=== PATIENT | male | born 1940 | race Caucasian/White ===

== ENCOUNTER → 2021-11-11 08:39 | Outpatient (CLI) | payer MEDICARE, SELFPAY | PROVIDERS: Visit Provider Ophthalmology | DX: Z01.812 Encounter for preprocedural laboratory examination (principal); Z11.52 Encounter for screening for COVID-19 | CPT/HCPCS: C9803; U0003; U0005 ==

== ENCOUNTER 2021-11-14 07:22 | Day surgery (SDC) | payer MEDICARE, SELFPAY ==
[2021-11-09 13:58] VITALS: BMI 30.3
[2021-11-14] VITALS (7 sets, daily range): BP systolic 162–176; BP diastolic 77–96; PULSE 78–88; RESP 16–18; TEMP 36.7–37.1; O2SAT 97–98
[2022-07-19 10:56] LABS: POC Glucose,Bedside 156 (70-110)
== END 2021-11-14 08:52 | disposition home or self-care (01) ==
LOC: OR 07:24
PROVIDERS: PCP Family Medicine; Visit Provider Ophthalmology
DX: H25.813 Combined forms of age-related cataract, bilateral (principal); H02.831 Dermatochalasis of right upper eyelid; H02.834 Dermatochalasis of left upper eyelid; H53.149 Visual discomfort, unspecified; I48.91 Unspecified atrial fibrillation; E11.9 Type 2 diabetes mellitus without complications; Z79.899 Other long term (current) drug therapy; Z79.01 Long term (current) use of anticoagulants
CPT/HCPCS: 66984; 82962; V2632

== ENCOUNTER → 2021-11-25 07:46 | Outpatient (CLI) | payer MEDICARE, SELFPAY | PROVIDERS: Visit Provider Ophthalmology | DX: Z01.812 Encounter for preprocedural laboratory examination (principal); Z11.52 Encounter for screening for COVID-19 | CPT/HCPCS: C9803; U0003; U0005 ==

== ENCOUNTER 2021-11-28 06:47 | Day surgery (SDC) | payer MEDICARE, SELFPAY ==
[2021-11-22 12:47] VITALS: BMI 30.3
[2021-11-28] VITALS (7 sets, daily range): BP systolic 141–168; BP diastolic 75–93; PULSE 75–96; RESP 18; TEMP 36.7–36.8; O2SAT 96–100
[2022-07-19 10:57] LABS: POC Glucose,Bedside 202 (70-110)
== END 2021-11-28 08:55 | disposition home or self-care (01) ==
LOC: OR 06:48
PROVIDERS: PCP Family Medicine; Visit Provider Ophthalmology
DX: H25.813 Combined forms of age-related cataract, bilateral (principal); H02.831 Dermatochalasis of right upper eyelid; H02.834 Dermatochalasis of left upper eyelid; I48.91 Unspecified atrial fibrillation; E11.9 Type 2 diabetes mellitus without complications; Z79.82 Long term (current) use of aspirin; Z79.899 Other long term (current) drug therapy
CPT/HCPCS: 66984; 82962; V2632

== ENCOUNTER → 2022-06-19 06:17 | Outpatient (CLI) | payer MEDICARE, SELFPAY ==
[2022-06-19 21:25] LABS: Basophils # 0.1 K/mm3 (0-0.2); Basophils % 0.8 % (0.1-2.0); Eosinophils # 0.2 K/mm3 (0.0-0.4); Eosinophils % 1.8 % (0.1-12.0); Hematocrit 51.2 % (42.0-52.0); Hemoglobin 16.1 g/dL (14.1-18.0); Lymphocytes # 1.4 K/mm3 (0.7-4.5); Lymphocytes % 14.7 % (10-50); Mean Corpuscular HGB Conc 31.5 g/dL (31.8-35.4); Mean Corpuscular Hemoglobin 27.2 pg (27.0-31.2); Mean Corpuscular Volume 86.3 fl (80-94); Mean Platelet Volume 10.3 fl (7.4-10.4); Monocytes # 0.6 K/mm3 (0.1-1.0); Monocytes % 6.4 % (1.7-9.3); Neutrophils # 7.4 K/mm3 (1.8-7.8); Neutrophils % 76.3 % (37.0-80.0); Platelet Count 204 K/mm3 (142-424); Red Blood Count 5.92 M/mm3 (4.60-6.20); Red Cell Distribution Width 15.4 % (11.5-17.5); White Blood Count 9.7 K/mm3 (4.8-10.8)
[2022-06-19 21:42] LABS: Alanine Aminotransferase 21 U/L (12-78); Albumin Level 4.4 g/dl (3.5-5.0); Albumin/Globulin Ratio 1.4 (1.1-1.8); Alkaline Phosphatase 106 U/L (38-126); Anion Gap 18.9 mEq/L (5-15); Aspartate Amino Transferase 39 U/L (17-59); Bilirubin,Total 0.8 mg/dl (0.2-1.3); Blood Urea Nitrogen 19 mg/dl (9-20); Calcium 9.9 mg/dl (8.4-10.2); Carbon Dioxide 26 mmol/L (22.0-30.0); Chloride 102 mmol/L (98-107); Chol/HDL Ratio 4.2 (1-3.5); Cholesterol 114 mg/dl (140-200); Estimated Glomerular Filt Rate 81 ml/min (>60); GFR (African American) 98 ML/MIN (>60); Globulin 3.1 g/dL (1.3-3.2); Glucose 178 mg/dl (74-100); HDL Cholesterol 27 mg/dl (40-60); Potassium 3.9 mmoL/L (3.5-5.1); Sodium 143 mmol/L (136-145); Total Protein,Serum 7.5 g/dl (6.3-8.2); Triglycerides 150 mg/dl (30-150); VLDL Cholesterol 30 mg/dL (0-40)
[2022-06-19 22:05] LABS: Hemoglobin A1C 9.1 % (4.0-6.0)
[2022-06-19 22:12] LABS: Thyroid Stimulating Hormone 2.28 uIU/mL (0.465-4.68)
[2022-06-21 12:31] LABS: Direct LDL Cholesterol 55 mg/dL (100-129)
== END ==
PROVIDERS: PCP Family Medicine; Visit Provider Student in an Organized Health Care Education/Training Program
DX: E11.9 Type 2 diabetes mellitus without complications (principal); I10 Essential (primary) hypertension; Z79.84 Long term (current) use of oral hypoglycemic drugs
CPT/HCPCS: 80053; 80061; 83036; 84443; 85025

== ENCOUNTER → 2022-12-04 23:39 | Outpatient (CLI) | payer MEDICARE, SELFPAY ==
[2022-12-04 18:51] LABS: Hemoglobin A1C 7.8 % (4.0-6.0)
[2022-12-05 10:26] LABS: Creatinine,Urine Random 43 mg/dL (Not Estab.); Microalbumin/Creatinine Ratio 692.7
== END ==
PROVIDERS: PCP Family Medicine; Visit Provider Family Medicine
DX: E11.9 Type 2 diabetes mellitus without complications (principal); Z79.84 Long term (current) use of oral hypoglycemic drugs
CPT/HCPCS: 82043; 82570; 83036

== ENCOUNTER → 2023-04-03 16:54 | Outpatient (CLI) | payer MEDICARE, SELFPAY ==
[2023-04-03 16:47] LABS: Hemoglobin A1C 8.3 % (4.0-6.0)
== END ==
PROVIDERS: PCP Family Medicine; Visit Provider Family Medicine
DX: E11.9 Type 2 diabetes mellitus without complications (principal); Z79.84 Long term (current) use of oral hypoglycemic drugs
CPT/HCPCS: 83036

== ENCOUNTER → 2023-05-28 06:40 | Outpatient (CLI) | payer MEDICARE, SELFPAY ==
--- NOTE | 2023-05-28 06:43 | NM_ITS ---
APPROVED REPORT Exam: Nuclear Stress Test Indication: soa..palpitations..a-fib..high BP..Diabetes..High cholesterol Patient Location: Outpatient Stress Tech: Leah Fuentes [place] Tech:Sylvia LozanoHARPER willis RT (R)(N)(M) Ht: 6 ft 1 in Wt: 235 lbs BSA: 2.30 m2 BMI: 31.0 History: soa..palpitations..a-fib..high BP..Diabetes..High cholesterol Procedure: The patient was in atrial flutter,so he was sent to the E.R. and we did not get the stress portion of the stress test finished. Cardiac Stress and Resting SPECT Images: Cardiac Stress and Resting SPECT images were obtained using technetium 99m Myoview mCi stress and 10.62 mCi at rest. The patient was noted to be in atrial flutter, and therefore only resting images were obtained. He was transferred to the ER thereafter. Stress imaging could not be obtained. Resting imaging demonstrates medium-sized, mild perfusion defect in the inferior LV wall. Evaluation of fixed vs. reversible defect cannot be made due to absence of stess testing. Gated imaging is not obtained due to absence of stress imaging. Conclusion: The patient was noted to be in atrial flutter, and therefore only resting images were obtained. He was transferred to the ER thereafter. Stress imaging could not be obtained. Resting imaging demonstrates medium-sized, mild perfusion defect in the inferior and inferoseptal LV blount. Evaluation of fixed vs. reversible defect cannot be made due to absence of stess testing. Gated imaging is not obtained due to absence of stress imaging. Electronically signed by : Di Mckenna, 07/04/2023 22:52:58
== END ==
PROVIDERS: PCP Family Medicine; Visit Provider Nurse Practitioner
DX: I48.91 Unspecified atrial fibrillation (principal); R06.09 Other forms of dyspnea; R94.31 Abnormal electrocardiogram [ECG] [EKG]
CPT/HCPCS: 78452; 93306; A9502

== ENCOUNTER 2023-05-28 08:45 | Emergency (ER) | payer MEDICARE, SELFPAY ==
[2023-05-28] VITALS (7 sets, daily range): BP systolic 126–166; BP diastolic 72–99; PULSE 63–135; RESP 19–20; TEMP 36.5–36.8; O2SAT 95–97; BMI 31.8
--- NOTE | 2023-05-28 08:45 | ECG_ITS ---
APPROVED REPORT Exam: Resting ECG HR:143 bpm ECG Measurements Heart Rate 143 AXES QRSd 142 QRS -65 QT 319 T 86 QTc 402 Conclusion ATRIAL FIBRILLATION WITH RAPID VENTRICULAR RESPONSE WITH ABERRANT CONDUCTION OR VENTRICULAR PREMATURE COMPLEXES RIGHT BUNDLE BRANCH BLOCK [120+ ms QRS DURATION, UPRIGHT V1, 40+ ms S IN I/aVL/V4/V5/V6] LEFT ANTERIOR FASCICULAR BLOCK [QRS AXIS <= -45, QR IN I, RS IN II] MODERATE VOLTAGE CRITERIA FOR LVH, CONSIDER NORMAL VARIANT [MEETS CRITERIA IN ONE OF: R(aVL), S(V1), R(V5), R(V5/V6)+S(V1)] ST DEPRESSION, CONSIDER SUBENDOCARDIAL INJURY [0.1+ mV ST DEPRESSION] ABNORMAL ECG UNCONFIRMED REPORT Electronically signed by : Michael Farmer MD 05/28/2023 20:46:48
--- NOTE | 2023-05-28 09:02 | PC.NURSE ---
Dr. Edmond at BS
--- NOTE | 2023-05-28 09:13 | HMH.EDGENADL ---
Discharge Plan Disposition Patient Disposition: Admitted Prescriptions Prescriptions: No Action omeprazole 20 mg capsule,delayed release(DR/EC) 20 mg PO DAILY aspirin 81 MG tablet,delayed release (DR/EC) 81 mg PO DAILY atorvastatin 20 mg tablet See Rx Instructions .ROUTE .COMPLEX Rx Instructions: TAKE ONE TABLET BY MOUTH ONCE DAILY metoprolol succinate 50 mg tablet extended release 24 hr See Rx Instructions .ROUTE .COMPLEX Rx Instructions: TAKE ONE TABLET BY MOUTH EVERY DAY levothyroxine 25 mcg tablet See Rx Instructions .ROUTE .COMPLEX Rx Instructions: TAKE ONE TABLET BY MOUTH EVERY MORNING diltiazem HCl 300 mg capsule,extended release 24hr See Rx Instructions .ROUTE .COMPLEX Rx Instructions: TAKE ONE CAPSULE EVERY MORNING hydrochlorothiazide 25 mg tablet See Rx Instructions .ROUTE .COMPLEX Rx Instructions: TAKE ONE TABLET EVERY DAY FOR BLOOD PRESSURE metformin 500 mg tablet extended release 24 hr 1,000 mg PO BID levocetirizine 5 mg tablet See Rx Instructions .ROUTE .COMPLEX Rx Instructions: TAKE ONE TABLET BY MOUTH DAILY Xarelto 20 mg tablet See Rx Instructions .ROUTE .COMPLEX Rx Instructions: TAKE ONE TABLET BY MOUTH DAILY Jardiance 25 mg tablet See Rx Instructions .ROUTE .COMPLEX Rx Instructions: TAKE ONE TABLET BY MOUTH DAILY Referrals Follow up/Referrals: Julio C Varela MD [Primary Care Provider] - See instructions Activity Restrictions/Add. Instructions Additional Instructions/Restrictions: Please get your escalated dose of metoprolol filled and begin your new dose tomorrow. Please return to the emergency department with any chest pain or shortness of breath and follow-up with your cardiology appointment as previously instructed in a few days. Clinical Impressions Clinical Impression: Atrial fibrillation with RVR, RBBB, LAFB (left anterior fascicular block) Discharge ED Provider: Jonathan Edmond General Adult HPI General Chief complaint: Arrhythmia/Palpitations Stated complaint: abnormal heart rhythem Time Seen by Provider: 05/28/23 08:55 Mode of Arrival: Wheelchair Source of Information: Patient, Spouse and Medical Record Limitations: No Limitations Description of Symptoms (Recalled from ER Triage Doc. by RN): Pt presents to ER via wheelchair from radiology. He was in the middle of his Leelee-scan when pt's HR was elevated (120-140s). Tech states pt was in afib with runs of vtach 9 beat runs . The tech contacted Dr. Ramsey and he suggested to send pt to ER for evaluation. Pt denies any complaints. Denies chest pain, SOA, aniuxety, heart fluttering. He does report a hx of afib and takes Cardizem 300mg, Metoprolol Succ 50mg, and HCTZ 25mg this morning. Denies any n/v/d. He has been NPO since 12am for the scan this am. Pt reports he was having this scan d/t a murmur that Dr. Varela identified. History of Present Illness HPI narrative: Patient is an 82-year-old male presenting today with tacky dysrhythmia. He was sent in from an outpatient clinic where he was getting worked up for possible ischemic heart disease and was found to have a concern for A-fib versus V. tach. The tach subsequently discussed the case with Dr. Ramsey who sent the patient to the emergency department. No rhythm strips or old EKGs were sent with the patient. He takes diltiazem 300 mg extended release daily and metoprolol 50 mg extended release daily. He states he is having no symptoms no chest pain no shortness of breath and feels great. Related Data Home Medications Medication Instructions Recorded Confirmed aspirin 81 mg tablet,delayed 81 mg PO DAILY heart health 11/14/21 05/28/23 release omeprazole 20 mg capsule,delayed 20 mg PO DAILY gerd 05/01/23 05/28/23 release atorvastatin 20 mg tablet See Rx Instructions .Route 05/28/23 05/28/23 .COMPLEX High Cholesterol diltiazem HCl 300 mg See Rx
[2023-05-28 09:26] LABS: Basophils % 0.1 % (0.1-2.0); Eosinophils # 0.1 K/mm3 (0.0-0.4); Eosinophils % 0.7 % (0.1-12.0); Hematocrit 40.5 % (42.0-52.0); Hemoglobin 12.2 g/dL (14.1-18.0); Lymphocytes # 1.6 K/mm3 (0.7-4.5); Lymphocytes % 11.6 % (10-50); Mean Corpuscular HGB Conc 30.1 g/dL (31.8-35.4); Mean Corpuscular Hemoglobin 18.7 pg (27.0-31.2); Mean Corpuscular Volume 62.3 fl (80-94); Mean Platelet Volume 8.7 fl (7.4-10.4); Neutrophils # 11.1 K/mm3 (1.8-7.8); Neutrophils % 80.6 % (37.0-80.0); Platelet Count 255 K/mm3 (142-424); Red Cell Distribution Width 20.5 % (11.5-17.5); White Blood Count 13.8 K/mm3 (4.8-10.8)
[2023-05-28 09:32] LABS: Alanine Aminotransferase 38 U/L (12-78); Albumin Level 4.8 g/dl (3.5-5.0); Albumin/Globulin Ratio 1.7 (1.1-1.8); Alkaline Phosphatase 76 U/L (38-126); Aspartate Amino Transferase 42 U/L (17-59); Bilirubin,Total 1.1 mg/dl (0.2-1.3); Blood Urea Nitrogen 25 mg/dl (9-20); Calcium 9.7 mg/dl (8.4-10.2); Carbon Dioxide 26 mmol/L (22.0-30.0); Chloride 101 mmol/L (98-107); Creatinine Clearance Estimated 89 mL/min (50-200); Estimated Glomerular Filt Rate 81 ml/min (>60); GFR (African American) 98 ML/MIN (>60); Globulin 2.9 g/dL (1.3-3.2); Glucose 166 mg/dl (74-100); Magnesium 1.9 mg/dl (1.6-2.3); Sodium 138 mmol/L (136-145); Total Protein,Serum 7.7 g/dl (6.3-8.2)
[2023-05-28 09:44] LABS: Troponin I 0.03 ng/ml (0.00-0.034)
[2023-05-28 10:02] LABS: Thyroid Stimulating Hormone 2.04 uIU/mL (0.465-4.68)
--- NOTE | 2023-05-28 10:17 | PC.NURSE ---
Dr. Brown at BS
--- NOTE | 2023-05-28 10:20 | PC.NURSE ---
talked to someone in cardiology about interrogating pt pacemaker.
--- NOTE | 2023-05-28 10:40 | EXP.MED.CON ---
History of Present Illness *Admission Date: 05/28/23 *Reason for visit:: Fast heart rate *History of present illness: Mr. Hackett is a pleasant 82-year-old male with history of atrial fibrillation, on chronic anticoagulation who is recently established with cardiology at [facility]. He was being seen today for nuclear stress test when he was noted to have tachyarrhythmia. Cardiology recently made adjustments to his rate controlling regimen 1 month ago with the addition of 50 mg metoprolol succinate. He is presenting today for outpatient ischemic work-up. On evaluation prior to completing stress test, patient was noted to have a fast heart rate. The tachyarrhythmia was subsequently discussed with Dr. Ramsey (Per ER documentation) who recommended the patient go to the emergency room for further evaluation. On evaluation in the ER, patient found to be in A-fib with RVR with heart rate in the 130s. He was started on diltiazem with improvement between 100-110s. During this entire time, patient denied any chest pain, sensation of heart racing, shortness of breath, dizziness, confusion. Patient stated he was asymptomatic and feeling great . ER consulted medicine for possible admission. I came to the ER to see the patient and further evaluate. Given his lack of symptoms, stable hemodynamics, and close follow-up with family member who works in cardiology clinic, recommended adjustment of medications and discharge home. Patient received additional dose of metoprolol succinate 50 mg x 1 in the ER prior to discharge home. Family at bedside, discussed plan with both patient and family, they both expressed comfort with this plan. [facility] Disclaimer: The information contained in this section may have been updated after the patient was seen, as this information can be updated by other users. Medical History A-fib Diabetes mellitus Hypertension Hypothyroidism Surgical History No significant past surgical history Family History Diabetes Mother Stroke Father Social History Smoking Status: Former smoker pack-years: 10 second hand exposure: No alcohol intake: never current occupational status: retired Travel in the last 8 weeks: None household members: family housing: house caffeine: Yes Review of Systems Review of Systems Review of systems (narrative): 14 point review of systems performed, pertinent positives and negatives as per HPI Exam Data for Last 24 hours Vital signs and Labs for Last 24 Hours: Temp Pulse Resp BP Pulse Ox O2 Del Method 97.7 F 105 H 20 136/76 95 Room Air 05/28/23 08:53 05/28/23 10:01 05/28/23 08:53 05/28/23 10:01 05/28/23 10:01 05/28/23 08:53 Laboratory Results - last 24 hr 05/28/23 08:50: WBC 13.8 H, RBC 6.50 H, Hgb 12.2 L, Hct 40.5 L, MCV 62.3 L, MCH 18.7 L, MCHC 30.1 L, RDW 20.5 H, Plt Count 255, MPV 8.7, Neut % (Auto) 80.6 H, Lymph % (Auto) 11.6, [place] % (Auto) 7.0, Eos % (Auto) 0.7, Baso % (Auto) 0.1, Neut # (Auto) 11.1 H, Lymph # (Auto) 1.6, [place] # (Auto) 1.0, Eos # (Auto) 0.1, Baso # (Auto) 0.0, Sodium 138, Potassium 4.0, Chloride 101, Carbon Dioxide 26, Anion Gap 15.0, BUN 25 H, Creatinine 0.90, Estimated Creat Clear 89, Estimated GFR 81, Est GFR ( Amer) 98, Glucose 166 H, Calcium 9.7, Magnesium 1.9, Total Bilirubin 1.1, AST 42, ALT 38, Alkaline Phosphatase 76, Troponin I 0.03, Total Protein 7.7, Albumin 4.8, Globulin 2.9, Albumin/Globulin Ratio 1.7, TSH 2.04 I & O for Last 24 hours: Intake & Output 05/25/23 05/26/23 05/27/23 05/28/23 23:59 23:59 23:59 23:59 Weight 106.594 kg Constitutional Constitutional: no acute distress and obese *Routine HEENT Exam Head: Present normocephalic Eye: Present EOMI and PERRL ENT: Present mucous m
== END 2023-05-28 11:05 | disposition admitted as inpatient to this hospital (09) ==
PROVIDERS: Emergency Provider Student in an Organized Health Care Education/Training Program; PCP Family Medicine
DX: I48.91 Unspecified atrial fibrillation (principal); I45.10 Unspecified right bundle-branch block; I44.4 Left anterior fascicular block; E11.9 Type 2 diabetes mellitus without complications; I10 Essential (primary) hypertension; E03.9 Hypothyroidism, unspecified; Z87.891 Personal history of nicotine dependence; R94.31 Abnormal electrocardiogram [ECG] [EKG]
CPT/HCPCS: 78451; 78452; 80053; 83735; 84443; 84484; 85025; 93005; 96374; 99291; A9502

== ENCOUNTER 2023-06-06 09:10 | Outpatient (CLI) | payer MEDICARE, SELFPAY ==
[2023-06-06] VITALS (8 sets, daily range): BP systolic 115–164; BP diastolic 62–93; PULSE 56–96; RESP 16–18; TEMP 36.2–36.6; O2SAT 91–96
--- NOTE | 2023-06-06 09:42 | PC.NURSE ---
FSBS: 138
[2023-06-06 09:46] LABS: POC Glucose,Bedside 138 (70-110)
== END 2023-06-06 12:20 | disposition home or self-care (01) ==
LOC: RAD 09:10
PROVIDERS: PCP Family Medicine; Visit Provider Internal Medicine
DX: E11.9 Type 2 diabetes mellitus without complications (principal); E78.5 Hyperlipidemia, unspecified; I10 Essential (primary) hypertension; I48.91 Unspecified atrial fibrillation; R06.09 Other forms of dyspnea; R94.31 Abnormal electrocardiogram [ECG] [EKG]; Z79.01 Long term (current) use of anticoagulants; Z87.891 Personal history of nicotine dependence; Z79.84 Long term (current) use of oral hypoglycemic drugs; R00.2 Palpitations
CPT/HCPCS: 75574; 82962; Q9967

== ENCOUNTER → 2023-06-26 13:54 | Outpatient (CLI) | payer MEDICARE, SELFPAY ==
--- NOTE | 2023-06-26 13:58 | CA_ITS ---
APPROVED REPORT EXAM: Comprehensive 2D, Doppler, and color-flow Echocardiogram Judge Clerk: Annelise Romero RT(R) Ht: 6 ft 0 in Wt: 222lbs BSA: 2.23 BP: 171/85 mmHg Indications: AFIB, ex smoker, HTN, DM, hyperlipidemia, abn EKG 2D Dimensions LVOT 2.52 cm (M/F) 1.5-2.5 LA Volume 112.40 mL LA Volume Index 50.40 mL/m2 (M/F) 16-34 M-Mode Dimensions RVDd 3.48 cm (0.9-2.6) LA Diam 6.68 cm (1.9-4.0) LVDd 5.10 cm (3.5-5.7) Ao Diam 3.30 cm (2.0-3.7) LVDs 4.07 cm (3.5-5.7) IVSd 1.03 cm (0.6-1.1) PWd 0.93 cm (0.6-1.1) EF (Teich) 41.10% FS 20.20% EDV (Teich) 123.80 mL ESV (Teich) 72.90 mL Tricuspid Valve TR P. Velocity 542.00 cm/s Left Ventricle The left ventricle is normal size. The left ventricular systolic function is normal. The left ventricular ejection fraction is within the normal range. There is increased LV wall thickness. There is normal LV segmental wall motion. The diastolic function cannot be evaluated due to atrial fibrillation. LVEF is 55%. Right Ventricle Right ventricle is moderately dilated. Right ventricle is mildly hypokinetic. Atria Left atrium is severely dilated. Right atrium is moderately dilated. There is no Doppler evidence of interatrial shunt. There is lipomatous hypertrophy of the interatrial septum. Aortic Valve The aortic valve is moderately thickened. There is no aortic valvular stenosis. Trace aortic regurgitation. Mitral Valve The mitral valve is mildly thickened. No evidence of mitral valve stenosis. Mild mitral regurgitation. Tricuspid Valve The tricuspid valve leaflets are thin and pliable. Mild tricuspid regurgitation. RVSP is 40-45 mmHg. Pulmonic Valve The pulmonary valve is normal in structure. Mild pulmonic regurgitation. Great Vessels The aortic root is normal in size. The ascending aorta is normal in size. IVC is normal in size and collapses >50% with inspiration. Pericardium Trivial pericardial effusion. Other Information Study Quality: Fair Conclusion Normal LV systolic function. Moderately dilated RV with mild reduction in RV function. Severe LA dilation, moderate RA dilation. Lipomatous hypertrophy of the interatrial septum. No significant valvular disease. Trivial pericardial effusion. Electronically signed by : Di Mckenna, 07/02/2023 00:10:44
== END ==
PROVIDERS: PCP Family Medicine; Visit Provider Nurse Practitioner
DX: I10 Essential (primary) hypertension (principal); I48.91 Unspecified atrial fibrillation; R06.09 Other forms of dyspnea
CPT/HCPCS: 93306

== ENCOUNTER 2023-06-27 07:01 | Day surgery (SDC) | payer MEDICARE, SELFPAY ==
[2023-06-27] VITALS (15 sets, daily range): BP systolic 105–176; BP diastolic 51–110; PULSE 56–95; RESP 17–18; TEMP 37; O2SAT 90–98; BMI 30.4
--- NOTE | 2023-06-27 07:17 | IR_ITS ---
APPROVED REPORT Patient Location: Outpatient PROCEDURES Left heart catheterization Left ventriculogram Selective coronary angiogram Drug-eluting stent deployment to the proximal mid dominant right coronary INDICATION Coronary artery disease, Angina pectoris Informed consent was obtained prior to the procedure. COMPLICATIONS NONE Estimated Blood Loss: LESS THAN 10 ML TECHNIQUE One percent lidocaine was used to anesthetize the right groin. The right femoral artery was accessed via the Seldinger technique. A 4-Gibraltarian sheath was placed in the right femoral artery. The JL-4 and JR-4 catheter was also used to perform left heart catheterization left ventriculogram and selective coronary angiogram. At the end of the diagnostic angiogram therapeutic heparin was administered and the 4 Gibraltarian sheath exchanged for a 6 Gibraltarian sheath. A 6 Gibraltarian JR4 catheter was placed in the right coronary artery followed by Choice PT extra-support wire being placed on the right coronary. A 4 mm x 38 mm Gary frontier stent was deployed at 20 yanick reducing the stenosis. A 5 mm x 20 mm balloon was then advanced and deployed at 20 yanick throughout the stent reducing the stenosis to less than 10%. BARBARA-3 flow was present before and after the procedure. At the end the procedure the apparatus was removed the groin was reprepped closure change sheath was removed and hemostasis was achieved using Perclose device patient was transferred to the postop holding in stable condition ANGIOGRAPHIC RESULTS The left main artery Has a smooth ostial 10 to 20% stenosis The left anterior descending artery Has proximal concentric 30% stenosis followed by mid vessel focal 70% stenosis immediately after a large second diagonal artery. The LAD is a large caliber vessel and wraps the apex The circumflex artery Small nondominant with mild mid vessel 10 to 20% stenosis The right coronary artery Massively large dominant vessel with proximal 40% followed by concentric 80% stenosis. The CAPELLAN ventriculogram reveals Normal 65% The left ventricular end-diastolic pressure 15 mmHg IMPRESSION Severe proximal dominant right coronary disease as described above with successful stenting reducing the severe stenosis to 0% with 1 drug-eluting stent Persistent moderate to severe stenosis in the mid LAD Normal ejection fraction Normal left ventricular end-diastolic pressure PLAN 1. It is reasonable to consider medical management for the mid LAD stenosis. Percutaneous revascularization is also possible. I would base the decision to revascularize patient based on symptoms 2. Plavix 75 mg daily plus aspirin 81 mg daily along with Xarelto for 1 month. Discontinue aspirin in 1 month and continue Plavix and Xarelto 3. LDL less than 55 to be achieved with high intensity statin 4. Consider Holter monitor based on significant ectopy during cardiac catheterization 5. Cardiac rehabilitation 6. Avoidance of tobacco products Electronically signed by : Mohinder Ramsey MD 06/27/2023 13:10:26
[2023-06-27 08:01] LABS: Basophils % 0.4 % (0.1-2.0); Eosinophils # 0.2 K/mm3 (0.0-0.4); Eosinophils % 1.6 % (0.1-12.0); Hemoglobin 13.4 g/dL (14.1-18.0); Lymphocytes # 1.5 K/mm3 (0.7-4.5); Lymphocytes % 15.3 % (10-50); Mean Corpuscular HGB Conc 31.1 g/dL (31.8-35.4); Mean Corpuscular Hemoglobin 20.1 pg (27.0-31.2); Mean Corpuscular Volume 64.8 fl (80-94); Mean Platelet Volume 8.8 fl (7.4-10.4); Monocytes # 0.6 K/mm3 (0.1-1.0); Neutrophils # 7.6 K/mm3 (1.8-7.8); Neutrophils % 76.7 % (37.0-80.0); Platelet Count 237 K/mm3 (142-424); Red Blood Count 6.64 M/mm3 (4.60-6.20); Red Cell Distribution Width 22.2 % (11.5-17.5); White Blood Count 9.8 K/mm3 (4.8-10.8)
[2023-06-27 08:13] LABS: Anion Gap 16.6 mEq/L (5-15); Blood Urea Nitrogen 16 mg/dl (9-20); Calcium 9.5 mg/dl (8.4-10.2); Carbon Dioxide 28 mmol/L (22.0-30.0); Chloride 100 mmol/L (98-107); Creatinine Clearance Estimated 85 mL/min (50-200); Estimated Glomerular Filt Rate 93 ml/min (>60); GFR (African American) 113 ML/MIN (>60); Glucose 161 mg/dl (74-100); Potassium 3.6 mmoL/L (3.5-5.1); Sodium 141 mmol/L (136-145)
[2023-06-27 10:33] LABS: CATHL Activated Clotting Time 269 SEC (74-125)
--- NOTE | 2023-06-27 12:54 | HMH.PHACL ---
PHA Forensic Science Technician Discharge Med Area Operations Director: Miki Salinasnathenrolf has received discharge medication counseling on the following medications: -ASPIRIN (ON PREVIOUSLY, NO QUESTIONS) -ATORVASTATIN (ON PREVIOUSLY, NO QUESTIONS) -PLAVIX (ANTIPLATELET, DAILY, BLEED/BRUISE RISK, BLEED LOCATION AND APPEARANCE, BUMP HEAD = GO TO ER TO RULE OUT HEAD BLEED, SOB POSSIBLE BUT RARE) -METOPROLOL (ON PREVIOUSLY, NO QUESTIONS) -NO FESTUS/ARB PER MD. -HOLD METFORMIN UNTIL SATURDAY. PATIENT VERBALIZED NO QUESTIONS AT THIS TIME.
== END 2023-06-27 12:58 | disposition home or self-care (01) ==
PROVIDERS: PCP Family Medicine; Visit Provider Internal Medicine
DX: E11.9 Type 2 diabetes mellitus without complications (principal); E78.5 Hyperlipidemia, unspecified; I10 Essential (primary) hypertension; I48.91 Unspecified atrial fibrillation; R93.1 Abnormal findings on diagnostic imaging of heart and coronary circulation; R93.89 Abnormal findings on diagnostic imaging of other specified body structures; R94.31 Abnormal electrocardiogram [ECG] [EKG]; Z79.01 Long term (current) use of anticoagulants; Z87.891 Personal history of nicotine dependence; I25.118 Atherosclerotic heart disease of native coronary artery with other forms of angina pectoris
CPT/HCPCS: 80048; 85025; 85347; 92928; 93458; 99152; 99153; C1725; C1760; C1769; C1876; C9600; J1644; Q9967

== ENCOUNTER → 2023-07-08 13:53 | Outpatient (CLI) | payer MEDICARE, SELFPAY ==
--- NOTE | 2023-07-08 14:08 | XR_ITS ---
FINAL REPORT CLINICAL HISTORY: wheezing FINDINGS: 2 views of the chest were obtained . The heart is mildly enlarged. The mediastinum is within normal limits. The lungs are clear. There is no pneumothorax. Osseous structures are unremarkable. IMPRESSION: No acute cardiopulmonary process. Reviewed, Interpreted and Dictated by Trenton Quintero MD Transcribed by Karen Hussein Authenticated and [facility]
== END ==
PROVIDERS: PCP Family Medicine; Visit Provider Nurse Practitioner
DX: R06.2 Wheezing (principal)
CPT/HCPCS: 71046

== ENCOUNTER 2023-07-12 12:05 | Inpatient (IN) | payer MEDICARE, SELFPAY ==
[2023-07-12] VITALS (10 sets, daily range): BP systolic 96–138; BP diastolic 45–79; PULSE 63–90; RESP 15–23; TEMP 36.6–36.8; O2SAT 94–97; BMI 29.0
--- NOTE | 2023-07-12 12:12 | ECG_ITS ---
APPROVED REPORT Exam: Resting ECG HR:88 bpm ECG Measurements Heart Rate 88 AXES QRSd 139 QRS -57 QT 427 T 99 QTc 472 Conclusion ATRIAL FIBRILLATION WITH ABERRANT CONDUCTION OR VENTRICULAR PREMATURE COMPLEXES RIGHT BUNDLE BRANCH BLOCK [120+ ms QRS DURATION, UPRIGHT V1, 40+ ms S IN I/aVL/V4/V5/V6] LEFT ANTERIOR FASCICULAR BLOCK [QRS AXIS <= -45, QR IN I, RS IN II] MODERATE VOLTAGE CRITERIA FOR LVH, CONSIDER NORMAL VARIANT [MEETS CRITERIA IN ONE OF: R(aVL), S(V1), R(V5), R(V5/V6)+S(V1)] MODERATE T-WAVE ABNORMALITY, CONSIDER LATERAL ISCHEMIA [-0.1+ mV T-WAVE IN I/aVL/V5/V6] ABNORMAL ECG UNCONFIRMED REPORT Electronically signed by : Michael Farmer MD 07/14/2023 07:38:22
--- NOTE | 2023-07-12 12:27 | XR_ITS ---
FINAL REPORT CLINICAL HISTORY: vomiting blood COMPARISON: 07/08/2023 FINDINGS: SINGLE VIEW CHEST The heart is normal in size. The mediastinum is unremarkable. The lungs are clear. There is no pneumothorax. IMPRESSION: No acute process. Reviewed, Interpreted and Dictated by Trenton Quintero MD Transcribed by Mary Cedeño Authenticated and [facility]
[2023-07-12 12:51] LABS: Basophils # 0.1 K/mm3 (0-0.2); Basophils % 0.4 % (0.1-2.0); Eosinophils # 0.2 K/mm3 (0.0-0.4); Eosinophils % 1.4 % (0.1-12.0); Hematocrit 34.5 % (42.0-52.0); Hemoglobin 10.3 g/dL (14.1-18.0); Lymphocytes # 1.9 K/mm3 (0.7-4.5); Lymphocytes % 15.6 % (10-50); Mean Corpuscular HGB Conc 29.9 g/dL (31.8-35.4); Mean Corpuscular Hemoglobin 20.1 pg (27.0-31.2); Mean Corpuscular Volume 67.3 fl (80-94); Mean Platelet Volume 9.1 fl (7.4-10.4); Monocytes # 0.6 K/mm3 (0.1-1.0); Monocytes % 4.6 % (1.7-9.3); Neutrophils # 9.4 K/mm3 (1.8-7.8); Platelet Count 344 K/mm3 (142-424); Red Blood Count 5.13 M/mm3 (4.60-6.20); Red Cell Distribution Width 22.6 % (11.5-17.5); White Blood Count 12.1 K/mm3 (4.8-10.8)
[2023-07-12 12:59] LABS: Anion Gap 18.6 mEq/L (5-15); Blood Urea Nitrogen 32 mg/dl (9-20); Calcium 9.1 mg/dl (8.4-10.2); Carbon Dioxide 26 mmol/L (22.0-30.0); Chloride 103 mmol/L (98-107); Creatinine Clearance Estimated 83 mL/min (50-200); Estimated Glomerular Filt Rate 81 ml/min (>60); GFR (African American) 98 ML/MIN (>60); Glucose 157 mg/dl (74-100); Potassium 3.6 mmoL/L (3.5-5.1); Sodium 144 mmol/L (136-145)
--- NOTE | 2023-07-12 13:03 | HMH.EDGENADL ---
Discharge Plan Disposition Patient Disposition: Admitted Prescriptions Prescriptions: No Action omeprazole 20 mg capsule,delayed release(DR/EC) 20 mg PO DAILY metoprolol succinate 100 mg tablet extended release 24 hr 100 mg PO DAILY 30 Days Qty: 30 2RF levothyroxine 25 mcg tablet See Rx Instructions .ROUTE .COMPLEX Qty: 90 0RF Dose Instruction: TAKE ONE TABLET BY MOUTH EVERY MORNING Rx Instructions: TAKE ONE TABLET BY MOUTH EVERY MORNING Jardiance 25 mg tablet See Rx Instructions .ROUTE .COMPLEX Qty: 30 2RF Dose Instruction: TAKE ONE TABLET BY MOUTH DAILY Rx Instructions: TAKE ONE TABLET BY MOUTH DAILY levocetirizine 5 mg tablet See Rx Instructions .ROUTE .COMPLEX Qty: 30 2RF Dose Instruction: TAKE ONE TABLET BY MOUTH DAILY Rx Instructions: TAKE ONE TABLET BY MOUTH DAILY aspirin 81 MG tablet,delayed release (DR/EC) 81 mg PO DAILY digoxin 125 mcg (0.125 mg) tablet 125 mcg PO DAILY hydrochlorothiazide 25 mg tablet See Rx Instructions .ROUTE .COMPLEX Rx Instructions: TAKE ONE TABLET EVERY DAY FOR BLOOD PRESSURE metformin 500 mg tablet extended release 24 hr 1,000 mg PO BID atorvastatin 20 mg tablet See Rx Instructions .ROUTE .COMPLEX Rx Instructions: TAKE ONE TABLET BY MOUTH ONCE DAILY diltiazem HCl 300 mg capsule,extended release 24hr See Rx Instructions .ROUTE .COMPLEX Rx Instructions: TAKE ONE CAPSULE EVERY MORNING Xarelto 20 mg tablet See Rx Instructions .ROUTE .COMPLEX Rx Instructions: TAKE ONE TABLET BY MOUTH DAILY clopidogrel [Plavix] 75 mg Tablet 75 mg PO DAILY Qty: 30 6RF Referrals Follow up/Referrals: Provider,Referral, [Referring] - See instructions Clinical Impressions Clinical Impression: Hematemesis, Anticoagulated Instructions Patient Instructions: DI for Gastrointestinal Bleeding Discharge ED Provider: Jonathan Edmond General Adult HPI General Chief complaint: GI Bleed Stated complaint: vomiting blood Time Seen by Provider: 07/12/23 12:51 Mode of Arrival: Ambulatory Source of Information: Patient Limitations: No Limitations Description of Symptoms (Recalled from ER Triage Doc. by RN): c/o spitting up bright red blood with his burp. PT states that last night he had some bright red blood come out of his nostril. History of Present Illness HPI narrative: Patient is an 82-year-old male history of atrial fibrillation chronically on Xarelto also recently had a left heart cath with a stent placed and he was started on aspirin and Plavix on top of his Xarelto. Presents to the emergency department today with some hematemesis. States that this began last night when he was coughing and states he had a little bit of blood that was going on the posterior aspect of his sinuses but no significant bleed at that time but today he was belching and a significant amount of blood was vomited up after that. He states that this is not primarily been associated with a cough but he believes from a gastrointestinal system standpoint. He denies any melena or hematochezia. He has been fatigued over the last several days more than normal. Patient denies any significant pain specifically epigastric abdominal pain. He does have a history of bleeding ulcers in the past and states he has felt some indigestion and gastroesophageal reflux type symptoms recently. Related Data Home Medications Medication Instructions Recorded Confirmed aspirin 81 mg tablet,delayed 81 mg PO DAILY heart health 11/14/21 07/08/23 release omeprazole 20 mg capsule,delayed 20 mg PO DAILY gerd 05/01/23 07/08/23 release hydrochlorothiazide 25 mg tablet See Rx Instructions .Route 05/28/23 07/08/23 .COMPLEX High Blood Pressure metformin 500 mg tablet,extended 1,000 mg PO BID Diabetes 05/28/23 07/08/23 release 24 hr digoxin 125 mcg (0.125 mg) tablet 125 mcg PO DAILY heart rate 06/06/2307/08
[2023-07-12 13:11] LABS: Troponin I 0.07 ng/ml (0.00-0.034)
--- NOTE | 2023-07-12 14:05 | PC.NURSE ---
Balbir COLLAZO rounding on pt. Pt questioned how long it would be before he went upstairs. Pt and family educated on expected wait times. No other needs voiced.
--- NOTE | 2023-07-12 14:15 | PC.NURSE ---
would like to s/w on-call General Surgery, Dr. Killian is on-call. His office will have him call shortly.
--- NOTE | 2023-07-12 14:17 | PC.NURSE ---
Omar Edmond s/w Dr. Killian
--- NOTE | 2023-07-12 15:05 | PC.NURSE ---
report called to ananya on second floor
--- NOTE | 2023-07-12 15:15 | HMH.PHAINT1 ---
Pharmacy Intervention Comments: MEDICATION RECONCILIATION COMPLETE USING LIST FROM MOST RECENT CARDIOLOGY OFFICE VISIT AND EXTERNAL PHARMACY FILL HISTORY.
--- NOTE | 2023-07-12 15:16 | PC.NURSE ---
arrived by w/c to floor from ED
[2023-07-12 15:25] LABS: INR 1.51 (0.9-1.1); Prothrombin Time 15.9 seconds (10.1-12.5)
[2023-07-12 15:53] LABS: Troponin I 0.07 ng/ml (0.00-0.034)
--- NOTE | 2023-07-12 17:33 | PC.NURSE ---
Pt is A/O x4, Pt came4 to unit with a possible GI bleed, Pt remains stable and pain free. MD ordered full liquid diet, and NPO after midnight in preparation for possible scope 07/13/23,Pt had a bloody stool at 1730 this shift (provider was notified), Pt offers no complaints and denies needs at this time
[2023-07-12 18:42] LABS: Hematocrit 27.3 % (42.0-52.0)
[2023-07-12 18:43] LABS: Hemoglobin 8.4 g/dL (14.1-18.0)
[2023-07-12 18:59] LABS: Troponin I 0.06 ng/ml (0.00-0.034)
--- NOTE | 2023-07-12 20:19 | EXP.HP ---
History of Present Illness *Admission Date: 07/12/23 *Reason for visit:: hemoptysis *History of present illness: Mr. Saini is an 82-year-old male with history of A-fib on chronic Xarelto, CAD with recent stent 2 weeks ago, hypertension, HLD, T2DM. He presented to the ER with complaint of coughing up blood last night and having an episode of burping up blood this morning after taking his morning pills. Complains of feeling more weak and fatigued. His episode of belching this morning produced a significant amount of blood which concerned him causing him to come to the ER. He has a remote history 10 to 15 years ago of ulcers but has been tolerant of Xarelto for many years with no issues. Was recently initiated on triple therapy 2 weeks ago. He denies any melena or bright red blood per rectum. Denies any specific or significant epigastric pain. States his blood pressure has been soft ever since his heart cath. Takes omeprazole for GERD. Afebrile with no syncope. On evaluation in the ER, patient found to have a hemoglobin 10.5. Hemoglobin 2 weeks ago above 13. Has not had a bowel movement today. ER consulted medicine for admission for serial labs and management of GI bleed. After arrival to the floor, patient is pleasant and interactive. Alert and oriented x3. Family at bedside. Multiple episodes of hematemesis since this morning. [facility] Disclaimer: The information contained in this section may have been updated after the patient was seen, as this information can be updated by other users. 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 congregational No significant past surgical history Family History Diabetes Mother Stroke Father Social History Smoking Status: Former smoker pack-years: 10 second hand exposure: No alcohol intake: never current occupational status: retired Travel in the last 8 weeks: None household members: family housing: house caffeine: Yes Review of Systems Review of Systems Review of systems (narrative): 14 point review of systems performed, pertinent positives and negatives as per HPI Meds Home Medications and Allergies Home Medications Medication Instructions Recorded Confirmed Type aspirin 81 mg tablet,delayed 81 mg PO DAILY Coronary Artery 11/14/21 07/12/23 History release Disease omeprazole 20 mg capsule,delayed 20 mg PO DAILY Acid Reflux 05/01/23 07/12/23 History release hydrochlorothiazide 25 mg tablet 25 mg PO DAILY High Blood Pressure 05/28/23 07/12/23 History metformin 500 mg tablet,extended 1,000 mg PO BIDWMEAL Diabetes 05/28/23 07/12/23 History release 24 hr digoxin 125 mcg (0.125 mg) tablet 125 mcg PO DAILY heart rate 06/06/23 07/12/23 History atorvastatin 20 mg tablet 20 mg PO DAILY Cholesterol 06/27/23 07/12/23 History diltiazem HCl 300 mg 300 mg PO DAILY HEART RATE 06/27/23 07/12/23 History capsule,extended release 24 hr rivaroxaban 20 mg tablet (Xarelto) 20 mg PO QPMWITHMEAL A FIB 06/27/23 07/12/23 History clopidogrel 75 mg tablet (Plavix) 75 mg PO DAILY Blood Thinner 07/12/23 07/12/23 History empagliflozin 25 mg tablet 25 mg PO DAILY Diabetes 07/12/23 07/12/23 History (Jardiance) levocetirizine 5 mg tablet 5 mg PO DAILY Allergy Symptoms 07/12/23 07/12/23 History levothyroxine 25 mcg tablet 25 mcg PO DAILYDM thyroid 07/12/23 07/12/23 History metoprolol succinate 100 mg 100 mg PO DAILY High Blood Pressure 07/12/23 07/12/23 History tablet,extended release 24 hr New Prescriptions to Start Prescriptions: Allergies Allergy/AdvReac Type Severity Reaction Status Date / Time No Known Allergie
[2023-07-13] VITALS (19 sets, daily range): BP systolic 100–164; BP diastolic 50–89; PULSE 80–102; RESP 16–20; TEMP 36.4–37.2; O2SAT 92–99; BMI 29.5
--- NOTE | 2023-07-13 04:54 | PC.NURSE ---
HAS HAD 1 MOD TARRY STOOL THIS SHIFT. TELE - AFIB RBBB. NO C/O CP OR SOA. AMBULATORY TO [facility]. AT BEDSIDE. NPO DIRECTED.
--- NOTE | 2023-07-13 06:11 | PC.NURSE ---
patient passed mod amt tarry stool with some blood noted.
[2023-07-13 06:21] LABS: Basophils % 0.3 % (0.1-2.0); Eosinophils # 0.1 K/mm3 (0.0-0.4); Eosinophils % 1.4 % (0.1-12.0); Hematocrit 26.8 % (42.0-52.0); Hemoglobin 7.9 g/dL (14.1-18.0); Lymphocytes # 1.6 K/mm3 (0.7-4.5); Lymphocytes % 16.9 % (10-50); Mean Corpuscular HGB Conc 29.6 g/dL (31.8-35.4); Mean Corpuscular Hemoglobin 19.9 pg (27.0-31.2); Mean Corpuscular Volume 67.3 fl (80-94); Mean Platelet Volume 10.4 fl (7.4-10.4); Monocytes # 0.5 K/mm3 (0.1-1.0); Monocytes % 5.1 % (1.7-9.3); Neutrophils # 7.4 K/mm3 (1.8-7.8); Neutrophils % 76.2 % (37.0-80.0); Platelet Count 255 K/mm3 (142-424); Red Blood Count 3.98 M/mm3 (4.60-6.20); Red Cell Distribution Width 22.9 % (11.5-17.5); White Blood Count 9.7 K/mm3 (4.8-10.8)
--- NOTE | 2023-07-13 06:26 | EXP.SURG.CON ---
History of Present Illness *Admission Date: 07/12/23 *Reason for visit:: Gastrointestinal hemorrhage *History of present illness: This is an 82-year-old gentleman seen in consultation from the primary service for evaluation regarding likely upper gastrointestinal hemorrhage. Please see HPI forwarded from admission H&P below. Forwarded from admission H&P: Mr. Saini is an 82-year-old male with history of A-fib on chronic Xarelto, CAD with recent stent 2 weeks ago, hypertension, HLD, T2DM. He presented to the ER with complaint of coughing up blood last night and having an episode of burping up blood this morning after taking his morning pills. Complains of feeling more weak and fatigued. His episode of belching this morning produced a significant amount of blood which concerned him causing him to come to the ER. He has a remote history 10 to 15 years ago of ulcers but has been tolerant of Xarelto for many years with no issues. Was recently initiated on triple therapy 2 weeks ago. He denies any melena or bright red blood per rectum. Denies any specific or significant epigastric pain. States his blood pressure has been soft ever since his heart cath. Takes omeprazole for GERD. Afebrile with no syncope. On evaluation in the ER, patient found to have a hemoglobin 10.5. Hemoglobin 2 weeks ago above 13. Has not had a bowel movement today. ER consulted medicine for admission for serial labs and management of GI bleed. After arrival to the floor, patient is pleasant and interactive. Alert and oriented x3. Family at bedside. Multiple episodes of hematemesis since this morning. [facility] Disclaimer: The information contained in this section may have been updated after the patient was seen, as this information can be updated by other users. 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 jain No significant past surgical history Family History Diabetes Mother Stroke Father Social History Smoking Status: Former smoker pack-years: 10 second hand exposure: No alcohol intake: never current occupational status: retired Travel in the last 8 weeks: None household members: family housing: house caffeine: Yes Meds Home Medications and Allergies Home Medications Medication Instructions Recorded Confirmed Type aspirin 81 mg tablet,delayed 81 mg PO DAILY Coronary Artery 11/14/21 07/12/23 History release Disease omeprazole 20 mg capsule,delayed 20 mg PO DAILY Acid Reflux 05/01/23 07/12/23 History release hydrochlorothiazide 25 mg tablet 25 mg PO DAILY High Blood Pressure 05/28/23 07/12/23 History metformin 500 mg tablet,extended 1,000 mg PO BIDWMEAL Diabetes 05/28/23 07/12/23 History release 24 hr digoxin 125 mcg (0.125 mg) tablet 125 mcg PO DAILY heart rate 06/06/23 07/12/23 History atorvastatin 20 mg tablet 20 mg PO DAILY Cholesterol 06/27/23 07/12/23 History diltiazem HCl 300 mg 300 mg PO DAILY HEART RATE 06/27/23 07/12/23 History capsule,extended release 24 hr rivaroxaban 20 mg tablet (Xarelto) 20 mg PO QPMWITHMEAL A FIB 06/27/23 07/12/23 History clopidogrel 75 mg tablet (Plavix) 75 mg PO DAILY Blood Thinner 07/12/23 07/12/23 History empagliflozin 25 mg tablet 25 mg PO DAILY Diabetes 07/12/23 07/12/23 History (Jardiance) levocetirizine 5 mg tablet 5 mg PO DAILY Allergy Symptoms 07/12/23 07/12/23 History levothyroxine 25 mcg tablet 25 mcg PO DAILYDM thyroid 07/12/23 07/12/23 History metoprolol succinate 100 mg 100 mg PO DAILY High Blood Pressure 07/12/23 07/12/23 History tablet,extended release 24 hr New Prescriptions to Start Prescriptions:
[2023-07-13 06:30] LABS: Alanine Aminotransferase 26 U/L (12-78); Albumin Level 3.5 g/dl (3.5-5.0); Albumin/Globulin Ratio 1.7 (1.1-1.8); Alkaline Phosphatase 52 U/L (38-126); Anion Gap 17.8 mEq/L (5-15); Aspartate Amino Transferase 27 U/L (17-59); Bilirubin,Total 0.8 mg/dl (0.2-1.3); Blood Urea Nitrogen 52 mg/dl (9-20); Carbon Dioxide 25 mmol/L (22.0-30.0); Chloride 104 mmol/L (98-107); Creatinine Clearance Estimated 84 mL/min (50-200); Estimated Glomerular Filt Rate 72 ml/min (>60); GFR (African American) 87 ML/MIN (>60); Globulin 2.1 g/dL (1.3-3.2); Glucose 193 mg/dl (74-100); Magnesium 1.8 mg/dl (1.6-2.3); Potassium 3.8 mmoL/L (3.5-5.1); Sodium 143 mmol/L (136-145); Total Protein,Serum 5.6 g/dl (6.3-8.2)
--- NOTE | 2023-07-13 06:59 | PC.NURSE ---
4018 DR BATES/SURGEON HERE TO SEE PATIENT AND DISCUSSED EGD. CONSENT OBTAINED. PRE-OP CHECK LIST COMPLETED.
--- NOTE | 2023-07-13 07:01 | PC.NURSE ---
Surgery team paged. Nolan returned call at [phone]. Shonda returned call at [phone]. Leticia returned call at [phone].
--- NOTE | 2023-07-13 07:30 | ECG_ITS ---
APPROVED REPORT Exam: Resting ECG HR:94 bpm ECG Measurements Heart Rate 94 AXES QRSd 144 QRS -53 QT 430 T 85 QTc 482 Conclusion ATRIAL FIBRILLATION WITH RVR RIGHT BUNDLE BRANCH BLOCK [120+ ms QRS DURATION, UPRIGHT V1, 40+ ms S IN I/aVL/V4/V5/V6] LEFT ANTERIOR FASCICULAR BLOCK [QRS AXIS <= -45, QR IN I, RS IN II] ABNORMAL ECG UNCONFIRMED REPORT Electronically signed by : Michael Farmer MD 07/14/2023 07:33:03
--- NOTE | 2023-07-13 08:21 | HMH.SCOPE ---
Procedure: Date: 07/13/23 Patient Date of :: 1940 Procedure Performed:: Esophagogastroduodenoscopy with biopsy Indications:: Gastrointestinal hemorrhage Performing Provider:: Vasquez Killian MD Referring Provider:: . Sedation:: Monitored anesthesia care Procedure:: After informed consent was obtained the patient was taken to the endoscopy suite. Sedation ensued after the patient was transferred to the left lateral decubitus position. Pulse, blood pressure, and oxygen saturation were monitored throughout the procedure. The endoscope was advanced beyond the duodenal bulb. Retroflexion within the gastric lumen was accomplished. The gastroscope was carefully removed and the patient was transferred to recovery in stable condition. Please see findings and specimens below for detail. Findings:: Esophageal mucosal projection at 35 cm (no sign of active/recent hemorrhage) Sliding hiatal hernia No obvious Oni lesion Mild patchy gastritis No obvious gastric or duodenal ulcerations No sign of active or recent hemorrhage in esophagus, stomach, or duodenum Specimens:: Antral biopsy Recommendations:: Evaluation for additional source of gastrointestinal hemorrhage (ideally as outpatient) Consider evaluation for possible pulmonary source Short-term repeat esophagogastroduodenoscopy to be performed by the gastroenterology service for evaluation of mucosal projection at 35 cm Complications:: No immediate Estimated blood obtained (mL): 1 Colonoscopy Component Colonoscopy Component Was a colonoscopy performed during today's procedure?: No
--- NOTE | 2023-07-13 08:24 | EXP.ANES.CKL ---
[facility] Disclaimer: The information contained in this section may have been updated after the patient was seen, as this information can be updated by other users. 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 jehovah's witness No significant past surgical history Family History Diabetes Mother Stroke Father Social History Smoking Status: Former smoker pack-years: 10 second hand exposure: No alcohol intake: never substance use type: denies use current occupational status: retired Travel in the last 8 weeks: None household members: family housing: house caffeine: Yes [facility] Anesthesia Checklist Patient Identification Patient Identification: Verbal (Name & ) Structural Data Admitted From: Inpatient Planned Operative Procedure/s: egd Consent for Planned Operative Procedure(s) Verified: Yes Additional verifications Anesthesia Reactions: No Hx Blood Transfusions: No Airway Assessment Mallampati Score:: Class II C-Spine Mobility Assessed: Yes TMJ Mobility Assessed: Yes Dentition: Poor Dentition Neurological Assessment Level of Consciousness: Awake, Alert and Appropriate Anesthesia Plan Anesthesia Risk discussed: Yes Anesthesia Plan: Verified ASA Class: III Anesthesia Type: MAC
--- NOTE | 2023-07-13 08:40 | SUR.OPER ---
0754: Patient voided prior to procedure in Scope room. 50mL urine collected at this time.
--- NOTE | 2023-07-13 09:18 | SUR.OPER ---
0754: Scope number 14 used
[2023-07-13 10:47] LABS: POC Glucose,Bedside 237 (70-110)
--- NOTE | 2023-07-13 11:21 | EXP.ACUTE.PN ---
Subjective *Date: 07/13/23 *Time: 15:08 Interval history: Patient more weak today. Has had several black stools this morning. Remains afebrile and hemodynamically stable. Holding blood pressure medication this morning. Family at bedside, concern for continued bloody bowel movements. Hemoglobin stabilizing however. Offered reassurance. Stable on room air Medical Exam Vital signs and Labs for Last 24 Hours: Vital Signs Temp Pulse Pulse Resp BP BP Pulse Ox 07/13/23 09:19 93 H 07/13/23 08:50 97.5 F L 91 H 20 139/62 95 07/13/23 08:40 97.5 F L 92 H 18 113/68 95 07/13/23 08:30 97.5 F L 93 H 16 128/69 97 07/13/23 08:20 97.5 F L 95 H 16 100/59 L 95 07/13/23 07:32 98.9 F 100 H 16 148/63 H 97 07/13/23 06:30 07/13/23 04:00 98.6 F 91 H 18 133/72 94 L 07/13/23 05:00 07/13/23 03:51 97 H 07/13/23 03:00 07/13/23 01:00 07/12/23 23:46 98.2 F 89 19 138/79 97 07/12/23 23:00 07/12/23 21:00 07/12/23 20:00 97 07/12/23 20:00 98.0 F 90 18 135/76 97 07/12/23 18:52 07/12/23 16:54 07/12/23 15:29 98 F 63 20 125/48 L 97 07/12/23 15:12 98.0 F 72 16 101/45 L 07/12/23 14:31 72 23 101/45 L 95 07/12/23 14:01 84 21 99/54 L 97 07/12/23 13:31 72 19 96/63 L 95 07/12/23 13:00 79 15 122/69 97 07/12/23 12:30 74 15 109/60 L 94 L 07/12/23 12:06 98.2 F 78 18 122/68 97 O2 Del Method O2 Flow Rate 07/13/23 09:19 07/13/23 08:50 Room Air 07/13/23 08:40 Room Air 07/13/23 08:30 Nasal Cannula 5 07/13/23 08:20 Nasal Cannula 5 07/13/23 07:32 Room Air 07/13/23 06:30 Room Air 07/13/23 04:00 Room Air 07/13/23 05:00 Room Air 07/13/23 03:51 07/13/23 03:00 Room Air 07/13/23 01:00 Room Air 07/12/23 23:46 Room Air 07/12/23 23:00 Room Air 07/12/23 21:00 Room Air 07/12/23 20:00 Room Air 07/12/23 20:00 Room Air 07/12/23 18:52 Room Air 07/12/23 16:54 Room Air 07/12/23 15:29 Room Air 07/12/23 15:12 07/12/23 14:31 Room Air 07/12/23 14:01 Room Air 07/12/23 13:31 Room Air 07/12/23 13:00 07/12/23 12:30 07/12/23 12:06 Room Air Intake and Output 07/12/23 07/13/23 07/13/23 23:59 07:59 15:59 Intake Total 360 / 720 360 / 360 Output Total 200 / 200 0 1 Balance 160 / 520 359 / 359 0 / 359 Intake: Intake, Oral Amount 360 / 720 360 / 360 Output: Output, Urine Amount 200 / 200 0 / 1 Other: Number of Unmeasured Voids 1 1 1 Number of Bowel Movements 1 1 Weight 100.868 kg Patient Weight 07/13/23 23:59 Weight 100.868 kg Laboratory Results - last 24 hr 07/12/23 12:15: WBC 12.1 H, RBC 5.13, Hgb 10.3 L, Hct 34.5 L, MCV 67.3 L, MCH 20.1 L, MCHC 29.9 L, RDW 22.6 H, Plt Count 344, MPV 9.1, Neut % (Auto) 78.0, Lymph % (Auto) 15.6, [place] % (Auto) 4.6, Eos % (Auto) 1.4, Baso % (Auto) 0.4, Neut # (Auto) 9.4 H, Lymph # (Auto) 1.9, [place] # (Auto) 0.6, Eos # (Auto) 0.2, Baso # (Auto) 0.1, PT 15.9 H, INR 1.51 H, Sodium 144, Potassium 3.6, Chloride 103, Carbon Dioxide 26, Anion Gap 18.6 H, BUN 32 H, Creatinine 0.90, Estimated Creat Clear 83, Estimated GFR 81, Est GFR ( Amer) 98, Glucose 157 H, Calcium 9.1, Troponin I 0.07 H, Blood Type O Positive, Antibody Screen Negative, Crossmatch (AHG) See Detail 07/12/23 15:22: Troponin I 0.07 H 07/12/23 16:50: Blood Type Cancelled, Blood Type Confirm O Positive, Antibody Screen Cancelled 07/12/23 18:13: Hgb 8.4 L D, Hct 27.3 L, Troponin I 0.06 H 07/13/23 06:11: WBC 9.7, RBC 3.98 L, Hgb 7.9 L, Hct 26.8 L, MCV 67.3 L, MCH 19.9 L, MCHC 29.6 L, RDW 22.9 H, Plt Count 255 D, MPV 10.4, Neut % (Auto) 76.2, Lymph % (Auto) 16.9, [place] % (Auto) 5.1, Eos % (Auto) 1.4, Baso % (Auto) 0.3, Neut # (Auto) 7.4, Lymph # (Auto) 1.6, [place] # (Auto) 0.5, Eos # (Auto) 0.1, Baso # (Auto) 0.0, Sodium 143, Potassium 3.8, Chloride 104, Carbon Dioxide 25, Anion Gap 17.8 H, BU
--- NOTE | 2023-07-13 13:00 | PC.NURSE ---
COURTESY NOTE: pt provided with fresh ice water. pt had no further requests.
[2023-07-13 13:43] LABS: Hematocrit 25.9 % (42.0-52.0); Hemoglobin 7.7 g/dL (14.1-18.0)
[2023-07-13 16:19] LABS: POC Glucose,Bedside 220 (70-110)
--- NOTE | 2023-07-13 17:23 | PC.NURSE ---
Pt is A/O x4, Pt had a EGD this morning and tolerated the procedure well. Pt tolerated a full liquid diet most of the shift following the procedure, Pt has since advanced to a bland diet for dinner and seems to be tolerating that well. Pt complains of bloody stools and hemorrhoids, MD notified, medications given for comfort. glucose levels have been elevated this shift and given insulin for coverage. Pt denies pain and offers no complaints at this time.
[2023-07-13 18:08] LABS: Microscopic, Urine URINE MICROSCOPIC (MICROSCOPIC)
[2023-07-13 18:37] LABS: Appearance,Urine CLEAR (Clear); Bilirubin,Urine Negative (Negative); Blood, Urine 1+ (Negative); Color,Urine YELLOW (Yellow); Glucose,Urine (UA) 3+ (Negative); Ketones,Urine TRACE (Negative); Leukocyte Esterase,Urine Negative (Negative); Nitrate,Urine Negative (Negative); PH,Urine 5.5 (5.0-8.5); Protein,Urine Negative (Negative); Specific Gravity, Urine 1.015 (1.005-1.030)
[2023-07-13 19:04] LABS: Squamous Epithelial Cell,Urine Occasional #/hpf (0-5)
[2023-07-14] VITALS (23 sets, daily range): BP systolic 108–143; BP diastolic 44–90; PULSE 71–95; RESP 16–18; TEMP 36.3–37.2; O2SAT 95–98; BMI 29.5
[2023-07-14 06:22] LABS: POC Glucose,Bedside 176 (70-110)
[2023-07-14 07:27] LABS: POC Glucose,Bedside 219 (70-110)
[2023-07-14 07:27] LABS: POC Glucose,Bedside 250 (70-110)
[2023-07-14 07:27] LABS: POC Glucose,Bedside 175 (70-110)
[2023-07-14 08:10] LABS: Basophils % 0.3 % (0.1-2.0); Eosinophils # 0.1 K/mm3 (0.0-0.4); Eosinophils % 1.6 % (0.1-12.0); Hematocrit 22.1 % (42.0-52.0); Lymphocytes % 15.3 % (10-50); Mean Corpuscular HGB Conc 29.8 g/dL (31.8-35.4); Mean Corpuscular Hemoglobin 20.5 pg (27.0-31.2); Mean Corpuscular Volume 68.8 fl (80-94); Mean Platelet Volume 8.4 fl (7.4-10.4); Monocytes # 0.3 K/mm3 (0.1-1.0); Neutrophils # 5.1 K/mm3 (1.8-7.8); Neutrophils % 77.8 % (37.0-80.0); Platelet Count 184 K/mm3 (142-424); Red Blood Count 3.22 M/mm3 (4.60-6.20); Red Cell Distribution Width 23.5 % (11.5-17.5); White Blood Count 6.6 K/mm3 (4.8-10.8)
[2023-07-14 08:12] LABS: Hemoglobin 6.6 g/dL (14.1-18.0)
[2023-07-14 08:15] LABS: Alanine Aminotransferase 19 U/L (12-78); Albumin Level 3.1 g/dl (3.5-5.0); Albumin/Globulin Ratio 1.5 (1.1-1.8); Alkaline Phosphatase 48 U/L (38-126); Anion Gap 13.3 mEq/L (5-15); Aspartate Amino Transferase 23 U/L (17-59); Bilirubin,Total 0.6 mg/dl (0.2-1.3); Blood Urea Nitrogen 26 mg/dl (9-20); Calcium 8.5 mg/dl (8.4-10.2); Carbon Dioxide 26 mmol/L (22.0-30.0); Chloride 106 mmol/L (98-107); Creatinine Clearance Estimated 84 mL/min (50-200); Estimated Glomerular Filt Rate 81 ml/min (>60); GFR (African American) 98 ML/MIN (>60); Globulin 2.1 g/dL (1.3-3.2); Glucose 193 mg/dl (74-100); Potassium 3.3 mmoL/L (3.5-5.1); Sodium 142 mmol/L (136-145); Total Protein,Serum 5.2 g/dl (6.3-8.2)
--- NOTE | 2023-07-14 09:00 | PC.NURSE ---
notified of critical lab. new orders received.
[2023-07-14 09:51] LABS: Hematocrit 21.5 % (42.0-52.0)
[2023-07-14 09:53] LABS: Hemoglobin 6.7 g/dL (14.1-18.0)
[2023-07-14 12:25] LABS: POC Glucose,Bedside 221 (70-110)
--- NOTE | 2023-07-14 12:45 | EXP.ACUTE.PN ---
Subjective *Date: 07/14/23 *Time: 12:45 Interval history: No more melenic or bloody bowel movements overnight. Patient remained on room air. Blood pressure within normal range. Afebrile overnight. Hemoglobin on morning labs however dropped again to 6.6. Remains fatigued. No chest pain, shortness of breath, nausea or vomiting. Medical Exam Vital signs and Labs for Last 24 Hours: Vital Signs Temp Pulse Pulse Resp BP BP Pulse Ox 07/14/23 12:40 98.4 F 76 18 121/54 L 07/14/23 12:35 98.4 F 82 18 129/62 07/14/23 12:15 98.8 F 90 18 141/56 H 07/14/23 12:15 98.8 F 90 18 141/56 H 07/14/23 11:15 98.4 F 95 H 126/62 07/14/23 11:00 98.6 F 91 H 18 130/56 L 07/14/23 10:45 98.1 F 88 16 123/62 07/14/23 09:00 07/14/23 10:30 98.2 F 91 H 116/58 L 07/14/23 08:00 07/14/23 10:25 98.1 F 89 18 128/62 07/14/23 10:20 98.5 F 88 18 139/90 07/14/23 10:15 98.7 F 91 H 143/58 H 07/14/23 10:00 98.5 F 94 H 18 138/71 07/14/23 09:02 88 07/14/23 07:41 97.7 F 91 H 16 122/59 L 95 07/14/23 04:00 97.5 F L 89 18 115/68 98 07/14/23 00:00 97.4 F L 90 18 115/60 97 07/13/23 20:00 98.1 F 88 18 158/70 H 99 07/14/23 07:00 07/14/23 05:00 07/14/23 03:00 07/14/23 01:00 07/13/23 23:00 07/13/23 21:00 07/13/23 20:00 07/13/23 18:43 07/13/23 16:50 07/13/23 15:00 07/13/23 15:06 98.4 F 94 H 18 164/89 H 99 07/13/23 12:54 O2 Del Method 07/14/23 12:40 07/14/23 12:35 07/14/23 12:15 07/14/23 12:15 07/14/23 11:15 07/14/23 11:00 07/14/23 10:45 07/14/23 09:00 Room Air 07/14/23 10:30 07/14/23 08:00 Room Air 07/14/23 10:25 07/14/23 10:20 07/14/23 10:15 07/14/23 10:00 07/14/23 09:02 07/14/23 07:41 Room Air 07/14/23 04:00 Room Air 07/14/23 00:00 Room Air 07/13/23 20:00 Room Air 07/14/23 07:00 Room Air 07/14/23 05:00 Room Air 07/14/23 03:00 Room Air 07/14/23 01:00 Room Air 07/13/23 23:00 Room Air 07/13/23 21:00 Room Air 07/13/23 20:00 Room Air 07/13/23 18:43 Room Air 07/13/23 16:50 Room Air 07/13/23 15:00 Room Air 07/13/23 15:06 Room Air 07/13/23 12:54 Room Air Intake and Output 07/13/23 07/14/23 07/14/23 23:59 07:59 15:59 Intake Total 270 / 1070 440 / 690 250 / 690 Output Total 0 / 1 0 / 0 0 / 0 Balance 270 / 1069 440 / 690 250 / 690 Intake: Intake, Oral Amount 270 / 1070 440 / 440 Intake (Blood Product) Amt 250 / 250 Red Blood Cells Unit 250 / 250 [id number] Red Blood Cells Unit 0 / 0 [id number] Output: Output, Urine Amount 0 / 1 0 / 0 0 / 0 Other: Number of Unmeasured Voids 1 1 1 Weight 100.828 kg Patient Weight 07/14/23 23:59 Weight 100.828 kg Laboratory Results - last 24 hr 07/12/23 12:15: Blood Type O Positive, Antibody Screen Negative, Crossmatch (AHG) See Detail 07/12/23 22:07: POC Glucose 175 H 07/13/23 05:39: POC Glucose 250 H 07/13/23 13:33: Hgb 7.7 L, Hct 25.9 L 07/13/23 16:03: POC Glucose 220 H 07/13/23 18:05: Urine Color Yellow, Urine Appearance Clear, Urine pH 5.5, Ur Specific [place] 1.015, Urine Protein Negative, Urine Glucose (UA) 3+, Urine Ketones Trace, Urine Blood 1+, Urine Nitrate Negative, Urine Bilirubin Negative, Urine Urobilinogen 1.0, Ur Leukocyte Esterase Negative, Urine RBC 3-5, Urine WBC None, Ur Squamous Epith Cells Occasional, Urine Bacteria None 07/13/23 19:46: POC Glucose 219 H 07/14/23 06:11: POC Glucose 176 H 07/14/23 07:45: WBC 6.6 D, RBC 3.22 L, Hgb 6.6 L*, Hct 22.1 L, MCV 68.8 L, MCH 20.5 L, MCHC 29.8 L, RDW 23.5 H, Plt Count 184 D, MPV 8.4, Neut % (Auto) 77.8, Lymph % (Auto) 15.3, [place] % (Auto) 5.0, Eos % (Auto) 1.6, Baso % (Auto) 0.3, Neut # (Auto) 5.1, Lymph # (Auto) 1.0, [place] # (Auto) 0.3, Eos # (Auto) 0.1, Baso # (Auto) 0.0, Sodium 142, Potassium 3.3 L, Chloride 106, Car
[2023-07-14 16:17] LABS: Hematocrit 25.3 % (42.0-52.0)
[2023-07-14 16:55] LABS: POC Glucose,Bedside 204 (70-110)
--- NOTE | 2023-07-14 18:39 | PC.NURSE ---
pt has had multiple liquid bowel movements. there is no evidence of blood that i can see. MD aware
[2023-07-14 20:08] LABS: POC Glucose,Bedside 187 (70-110)
[2023-07-15] VITALS (9 sets, daily range): BP systolic 107–132; BP diastolic 50–82; PULSE 70–94; RESP 16–20; TEMP 36.1–37.2; O2SAT 91–97; BMI 29.6
[2023-07-15 06:00] LABS: POC Glucose,Bedside 151 (70-110)
[2023-07-15 06:41] LABS: Basophils % 0.3 % (0.1-2.0); Eosinophils # 0.1 K/mm3 (0.0-0.4); Eosinophils % 2.4 % (0.1-12.0); Hematocrit 25.8 % (42.0-52.0); Hemoglobin 8.1 g/dL (14.1-18.0); Lymphocytes # 0.9 K/mm3 (0.7-4.5); Lymphocytes % 16.9 % (10-50); Mean Corpuscular HGB Conc 31.3 g/dL (31.8-35.4); Mean Corpuscular Hemoglobin 22.2 pg (27.0-31.2); Mean Platelet Volume 10.8 fl (7.4-10.4); Monocytes # 0.3 K/mm3 (0.1-1.0); Monocytes % 5.9 % (1.7-9.3); Neutrophils # 3.7 K/mm3 (1.8-7.8); Neutrophils % 74.4 % (37.0-80.0); Platelet Count 162 K/mm3 (142-424); Red Blood Count 3.63 M/mm3 (4.60-6.20); Red Cell Distribution Width 23.3 % (11.5-17.5)
--- NOTE | 2023-07-15 06:41 | PC.NURSE ---
pt off the floor via stretcher with rn for colonoscopy
[2023-07-15 06:50] LABS: Alanine Aminotransferase 17 U/L (12-78); Albumin Level 3.2 g/dl (3.5-5.0); Albumin/Globulin Ratio 1.5 (1.1-1.8); Alkaline Phosphatase 58 U/L (38-126); Anion Gap 14.1 mEq/L (5-15); Aspartate Amino Transferase 24 U/L (17-59); Blood Urea Nitrogen 13 mg/dl (9-20); Calcium 8.2 mg/dl (8.4-10.2); Carbon Dioxide 24 mmol/L (22.0-30.0); Chloride 104 mmol/L (98-107); Creatinine Clearance Estimated 85 mL/min (50-200); Estimated Glomerular Filt Rate 93 ml/min (>60); GFR (African American) 113 ML/MIN (>60); Globulin 2.2 g/dL (1.3-3.2); Glucose 156 mg/dl (74-100); Magnesium 1.7 mg/dl (1.6-2.3); Potassium 3.1 mmoL/L (3.5-5.1); Sodium 139 mmol/L (136-145); Total Protein,Serum 5.4 g/dl (6.3-8.2)
--- NOTE | 2023-07-15 06:51 | EXP.SURG.PN ---
Subjective Narrative: Feels better after 2 units packed red blood cells. Exam Data for Last 24 hours Vital signs and Labs for Last 24 Hours: Temp Pulse Resp BP Pulse Ox O2 Del Method O2 Flow Rate 98.1 F 94 H 18 125/67 96 Room Air 5 07/15/23 04:00 07/15/23 04:00 07/15/23 04:00 07/15/23 04:00 07/15/23 04:00 07/15/23 05:00 07/13/23 08:30 Laboratory Results - last 24 hr 07/12/23 12:15: Blood Type O Positive, Antibody Screen Negative, Crossmatch (AHG) See Detail 07/12/23 22:07: POC Glucose 175 H 07/13/23 05:39: POC Glucose 250 H 07/13/23 19:46: POC Glucose 219 H 07/14/23 07:45: WBC 6.6 D, RBC 3.22 L, Hgb 6.6 L*, Hct 22.1 L, MCV 68.8 L, MCH 20.5 L, MCHC 29.8 L, RDW 23.5 H, Plt Count 184 D, MPV 8.4, Neut % (Auto) 77.8, Lymph % (Auto) 15.3, [place] % (Auto) 5.0, Eos % (Auto) 1.6, Baso % (Auto) 0.3, Neut # (Auto) 5.1, Lymph # (Auto) 1.0, [place] # (Auto) 0.3, Eos # (Auto) 0.1, Baso # (Auto) 0.0, Sodium 142, Potassium 3.3 L, Chloride 106, Carbon Dioxide 26, Anion Gap 13.3, BUN 26 H D, Creatinine 0.90, Estimated Creat Clear 84, Estimated GFR 81, Est GFR ( Amer) 98, Glucose 193 H, Calcium 8.5, Total Bilirubin 0.6, AST 23, ALT 19 D, Alkaline Phosphatase 48, Total Protein 5.2 L, Albumin 3.1 L D, Globulin 2.1, Albumin/Globulin Ratio 1.5 07/14/23 09:40: Hgb 6.7 L*, Hct 21.5 L 07/14/23 12:05: POC Glucose 221 H 07/14/23 16:07: Hgb 8.0 L D, Hct 25.3 L 07/14/23 16:46: POC Glucose 204 H 07/14/23 19:54: POC Glucose 187 H 07/15/23 05:44: POC Glucose 151 H 07/15/23 06:20: WBC 5.0, RBC 3.63 L, Hgb 8.1 L, Hct 25.8 L, MCV 71.0 L, MCH 22.2 L, MCHC 31.3 L, RDW 23.3 H, Plt Count 162, MPV 10.8 H, Neut % (Auto) 74.4, Lymph % (Auto) 16.9, [place] % (Auto) 5.9, Eos % (Auto) 2.4, Baso % (Auto) 0.3, Neut # (Auto) 3.7, Lymph # (Auto) 0.9, [place] # (Auto) 0.3, Eos # (Auto) 0.1, Baso # (Auto) 0.0 I & O for Last 24 hours: Intake & Output 07/12/23 07/13/23 07/14/23 07/15/23 11:59 11:59 11:59 11:59 Intake Total 720 / 720 950 / 950 1220 / 1220 Output Total 201 / 201 0 / 0 5 / 5 Balance 519 / 519 950 / 950 1215 / 1215 Weight 222 lb 6 oz 222 lb 4.603 oz 223 lb 12.8 oz Constitutional Constitutional: no acute distress *Routine Respiratory Exam Respiratory: Absent respiratory distress *Routine Cardiovascular Exam Cardiovascular: Absent tachycardia *Routine Abdominal Exam Abdominal: Present soft Progress Note: A&P Assessment and plan (1) Acute blood loss anemia: Status: Acute Assessment and plan: No definitive source noted per esophagogastroduodenoscopy. Hemoglobin stable this AM. Colonoscopy this morning I have discussed the risks and benefits including, but not limited to: Bleeding Infection Damage to surrounding tissue Inherent risks of sedation The patient agrees to proceed.
--- NOTE | 2023-07-15 07:59 | HMH.SCOPE ---
Procedure: Date: 07/15/23 Patient Date of :: 1940 Procedure Performed:: Colonoscopy with polypectomy and argon plasma coagulation Indications:: Gastrointestinal hemorrhage Performing Provider:: Vasquez Killian MD Referring Provider:: . Sedation:: Monitored anesthesia care Procedure:: After informed consent was obtained the patient was taken to the endoscopy suite. Sedation ensued after the patient was transferred to the left lateral decubitus position. Pulse, blood pressure, and oxygen saturation were monitored throughout the procedure. Digital rectal exam revealed no significant abnormality. The colonoscope was placed in position. The entire colon was evaluated. The colonoscope was carefully removed and the patient was transferred to recovery in stable condition. Please see findings and specimens below for detail. Findings:: Bowel preparation fair Circumferential hemorrhoids with no sign of active/recent hemorrhage (left lateral cushions mildly thrombosed) Profound spasticity/lack of relaxation Fairly severe tortuosity (particularly sigmoid) Left-sided diverticulosis with no evidence of active/recent hemorrhage Focus of adjacent patch of AVMs versus mucosal irritation in cecum (treated with argon plasma coagulation) Adjacent small periappendiceal polyps with vascular congestion (possible early/forming AVM -treated with excision followed by argon plasma coagulation) Sessile polyp at 65 cm Note: No sign of active hemorrhage and no sign of old blood noted throughout colon. Specimens:: Adjacent periappendiceal polyps (cold biopsy forceps) Sessile polyp at 65 cm (cold snare) Recommendations:: Follow-up pathology Continue evaluation for gastrointestinal hemorrhage source identification (likely UGI/SBFT followed by capsule endoscopy in near future) Consider barium enema in near future secondary to fairly severe spasticity/lack of relaxation/tortuosity Follow-up colonoscopy timing pending results of pathology and pending results of barium enema (likely within 2-3 years) Complications:: No immediate Estimated blood obtained (mL): 1 Colonoscopy Component Colonoscopy Component Was a colonoscopy performed during today's procedure?: Yes Recommended follow up colonoscopy of at least 10 years?: No If no, follow up colonoscopy recommended in ___ years?: (See above) Reason for not recommending >/= 10 yr follow-up interval?: (See above)
--- NOTE | 2023-07-15 11:47 | CT_ITS ---
FINAL REPORT TECHNIQUE: Axial imaging of the chest is obtained after the administration of contrast. 3-D MIP reformatted images were also obtained and reviewed per PE protocol. CLINICAL HISTORY: sob, hemoptysis FINDINGS: The pulmonary arteries are well filled. The heart is enlarged there is no evidence of pulmonary embolus. There is no aortic dissection or intimal flap. There are multiple small mediastinal lymph nodes. There is no hilar or axillary lymphadenopathy. There is mild intralobular septal thickening in the lung bases. There is no pericardial effusion. There are small bilateral pleural effusions. Limited evaluation of the upper abdomen is without acute abnormality. No acute osseous abnormality. IMPRESSION: No evidence of pulmonary embolism or aortic dissection. Findings likely related to mild CHF. Reviewed, Interpreted and Dictated by aRdha Meza MD Transcribed by Jorge Patton Authenticated and [facility]
--- NOTE | 2023-07-15 12:05 | EXP.DC.SUM ---
General Admission date:: 07/12/23 Discharge date: 07/15/23 HPI HPI HPI: This is an 82-year-old gentleman seen in consultation from the primary service for evaluation regarding likely upper gastrointestinal hemorrhage. Please see HPI forwarded from admission H&P below. Forwarded from admission H&P: Mr. Saini is an 82-year-old male with history of A-fib on chronic Xarelto, CAD with recent stent 2 weeks ago, hypertension, HLD, T2DM. He presented to the ER with complaint of coughing up blood last night and having an episode of burping up blood this morning after taking his morning pills. Complains of feeling more weak and fatigued. His episode of belching this morning produced a significant amount of blood which concerned him causing him to come to the ER. He has a remote history 10 to 15 years ago of ulcers but has been tolerant of Xarelto for many years with no issues. Was recently initiated on triple therapy 2 weeks ago. He denies any melena or bright red blood per rectum. Denies any specific or significant epigastric pain. States his blood pressure has been soft ever since his heart cath. Takes omeprazole for GERD. Afebrile with no syncope. On evaluation in the ER, patient found to have a hemoglobin 10.5. Hemoglobin 2 weeks ago above 13. Has not had a bowel movement today. ER consulted medicine for admission for serial labs and management of GI bleed. After arrival to the floor, patient is pleasant and interactive. Alert and oriented x3. Family at bedside. Multiple episodes of hematemesis since this morning. Exam Data for Last 24 hours Vital signs and Labs for Last 24 Hours: Temp Pulse Resp BP Pulse Ox O2 Del Method O2 Flow Rate 98.1 F 86 18 126/72 93 L Room Air 3 07/15/23 11:29 07/15/23 11:29 07/15/23 11:29 07/15/23 11:29 07/15/23 11:29 07/15/23 11:29 07/15/23 08:15 Laboratory Results - last 24 hr 07/12/23 12:15: Blood Type O Positive, Antibody Screen Negative, Crossmatch (AHG) See Detail 07/14/23 12:05: POC Glucose 221 H 07/14/23 16:07: Hgb 8.0 L D, Hct 25.3 L 07/14/23 16:46: POC Glucose 204 H 07/14/23 19:54: POC Glucose 187 H 07/15/23 05:44: POC Glucose 151 H 07/15/23 06:20: WBC 5.0, RBC 3.63 L, Hgb 8.1 L, Hct 25.8 L, MCV 71.0 L, MCH 22.2 L, MCHC 31.3 L, RDW 23.3 H, Plt Count 162, MPV 10.8 H, Neut % (Auto) 74.4, Lymph % (Auto) 16.9, Fisher % (Auto) 5.9, Eos % (Auto) 2.4, Baso % (Auto) 0.3, Neut # (Auto) 3.7, Lymph # (Auto) 0.9, Fisher # (Auto) 0.3, Eos # (Auto) 0.1, Baso # (Auto) 0.0, Sodium 139, Potassium 3.1 L, Chloride 104, Carbon Dioxide 24, Anion Gap 14.1, BUN 13 D, Creatinine 0.80, Estimated Creat Clear 85, Estimated GFR 93, Est GFR ( Amer) 113, Glucose 156 H, Calcium 8.2 L, Magnesium 1.7, Total Bilirubin 1.0, AST 24, ALT 17, Alkaline Phosphatase 58, Total Protein 5.4 L, Albumin 3.2 L, Globulin 2.2, Albumin/Globulin Ratio 1.5 I & O for Last 24 hours: Intake & Output 07/12/23 07/13/23 07/14/23 07/15/23 23:59 23:59 23:59 23:59 Intake Total 360 / 720 870 / 1070 1660 / 1660 Output Total 200 / 200 1 / 1 2 / 4 3 / 3 Balance 160 / 520 869 / 1069 1658 / 1656 -3 / -3 Weight 99.79 kg 100.868 kg 100.82 kg 101.514 kg Results Data Completed and Pending Labs on day of discharge: Labs from last 24 hours 07/15/23 07/15/23 07/14/23 06:20 05:44 19:54 WBC 5.0 RBC 3.63 L Hgb 8.1 L Hct 25.8 L MCV 71.0 L MCH 22.2 L MCHC 31.3 L RDW 23.3 H Plt Count 162 MPV 10.8 H Neut % (Auto) 74.4 Lymph % (Auto) 16.9 Fisher % (Auto) 5.9 Eos % (Auto) 2.4 Baso % (Auto) 0.3 Neut # (Auto) 3.7 Lymph # (Auto) 0.9 Fisher # (Auto) 0.3 Eos # (Auto) 0.1 Baso # (Auto) 0.0 Sodium 139 Potassium 3.1 L Chloride 104 Carbon Dioxide 24 Anion Gap 14.1 BUN 13 D Creatinine 0.80 Estimated Creat Clear 85 Estimated GFR 93 Est GFR ( Amer) 113 Glucose 156 H POC Glucose 151 H 187 H Calcium 8.2 L Magnesium
--- NOTE | 2023-07-15 12:44 | EXP.CARD.CON ---
History of Present Illness History of Present Illness Consult date: 07/15/23 Requesting physician: Dev Brown Chief complaint: hemoptysis History of present illness: This is an 82-year-old white gentleman who presented to the emergency department with complaints of hemoptysis and an episode of hematemesis. The patient has a history of atrial fibrillation on chronic Xarelto use, coronary artery disease with stenting approximately 2 weeks ago, hypertension, hyperlipidemia and type 2 diabetes mellitus. The patient reports that he had been coughing all through the night and woke up and had the hemoptysis. He states that he had some belching and this produced a significant amount of blood when he vomited. The patient came to the emergency department because of the bloody sputum and bloody emesis. The patient denied any chest pain or pressure. He denied any shortness of breath or edema. He denied any fever, chills, nausea, diarrhea, PND or orthopnea. He noticed that he had been a little more weak and fatigued than usual. Upon arrival to the emergency department his hemoglobin was down to a 10.5 which had been around 13 2 weeks prior. The patient had black tarry stools after being admitted to the hospital. The patient's hemoglobin has been as low as 6.6 on this admission. He has received 2 units of packed red blood cells. The patient has underwent EGD and colonoscopy during this hospitalization. Both showed no active bleeds. He states he has not had any more hemoptysis, hematic emesis or black tarry stools. [facility] Disclaimer: The information contained in this section may have been updated after the patient was seen, as this information can be updated by other users. 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 Hx of cardiac catheterization No significant past surgical history Family History Diabetes Mother Stroke Father Social History (Updated 07/13/23 @ 08:25 by Nolan Ramsey CRNA) Smoking Status: Former smoker pack-years: 10 second hand exposure: No alcohol intake: never substance use type: denies use current occupational status: retired Travel in the last 8 weeks: None household members: family housing: house caffeine: Yes Review of Systems Review of Systems Review of systems:: pertinent systems reviewed and negative unless documented below Constitutional Constitutional: Reports system reviewed and no additional complaints, except as documented, Reports fatigue, Reports lethargy and Reports weakness Eyes Eyes: Reports system reviewed and no additional complaints, except as documented ENT Ears, Nose, Mouth, and Throat: Reports system reviewed and no additional complaints, except as documented *Cardiovascular Cardiovascular: Reports system reviewed and no additional complaints, except as documented *Respiratory Respiratory: Reports system reviewed and no additional complaints, except as documented and Reports hemoptysis *Gastrointestinal Gastrointestinal: Reports system reviewed and no additional complaints, except as documented, Reports belching, Reports melena and Reports other (Hematemesis) *Genitourinary Genitourinary: Reports system reviewed and no additional complaints, except as documented *Musculoskeletal Musculoskeletal: Reports system reviewed and no additional complaints, except as documented Integumentary/Breasts Skin/Breast: Reports system reviewed and no additional complaints, except as documented *Neurologic Neurologic: Reports system reviewed and no additional complaints, except as documented and Reports weakness Psychiatric Psychiatric: Reports system reviewed and no ad
--- NOTE | 2023-07-15 13:09 | EXP.ACUTE.PN ---
Subjective *Date: 07/15/23 *Time: 13:09 Interval history: Tolerated prep overnight. No bloody bowel movements. Taken for C-scope this morning with minor findings including a few polyps and AVM in the cecum. See C-scope note for full detail. Patient hungry. Denies chest pain or shortness of breath. Weakness stable. Responded well to transfusion, hemoglobin stable at 8. Afebrile overnight. Daughter at bedside. Medical Exam Vital signs and Labs for Last 24 Hours: Vital Signs Temp Pulse Pulse Resp BP BP Pulse Ox 07/15/23 11:29 98.1 F 86 18 126/72 93 L 07/15/23 10:55 07/15/23 09:00 07/15/23 09:05 07/15/23 08:25 87 17 132/82 97 07/15/23 08:15 85 17 127/69 95 07/15/23 08:05 97 F L 87 16 127/66 95 07/15/23 04:00 98.1 F 94 H 18 125/67 96 07/15/23 03:00 07/15/23 01:00 07/15/23 05:00 07/15/23 00:00 98.0 F 86 18 107/60 L 93 L 07/14/23 20:00 98.1 F 84 18 127/77 97 07/14/23 23:00 07/14/23 21:00 07/14/23 20:00 07/14/23 17:00 07/14/23 15:00 07/14/23 15:11 97.9 F 72 16 120/44 L 97 07/14/23 14:20 98.4 F 72 18 122/48 L 07/14/23 13:35 98.2 F 71 18 111/53 L 07/14/23 13:20 98.1 F 74 18 108/59 L O2 Del Method O2 Flow Rate 07/15/23 11:29 Room Air 07/15/23 10:55 Room Air 07/15/23 09:00 Room Air 07/15/23 09:05 Room Air 07/15/23 08:25 Room Air 07/15/23 08:15 Nasal Cannula 3 07/15/23 08:05 Nasal Cannula 3 07/15/23 04:00 Room Air 07/15/23 03:00 Room Air 07/15/23 01:00 Room Air 07/15/23 05:00 Room Air 07/15/23 00:00 Room Air 07/14/23 20:00 Room Air 07/14/23 23:00 Room Air 07/14/23 21:00 Room Air 07/14/23 20:00 Room Air 07/14/23 17:00 Room Air 07/14/23 15:00 Room Air 07/14/23 15:11 Room Air 07/14/23 14:20 07/14/23 13:35 07/14/23 13:20 Intake and Output 07/14/23 07/15/23 07/15/23 23:59 07:59 15:59 Intake Total 360 / 1660 270 / 270 Output Total 2 / 4 3 / 3 Balance 358 / 1656 -3 / 267 270 / 267 Intake: Intake, Oral Amount 360 / 1160 270 / 270 Output: Output, Urine Amount 2 / 2 1 / 1 Output, Stool Amount 2 / 2 Other: Number of Unmeasured Voids 1 1 Number of Bowel Movements 2 1 Weight 101.514 kg Patient Weight 07/15/23 23:59 Weight 101.514 kg Laboratory Results - last 24 hr 07/12/23 12:15: Crossmatch (AHG) See Detail 07/14/23 16:07: Hgb 8.0 L D, Hct 25.3 L 07/14/23 16:46: POC Glucose 204 H 07/14/23 19:54: POC Glucose 187 H 07/15/23 05:44: POC Glucose 151 H 07/15/23 06:20: WBC 5.0, RBC 3.63 L, Hgb 8.1 L, Hct 25.8 L, MCV 71.0 L, MCH 22.2 L, MCHC 31.3 L, RDW 23.3 H, Plt Count 162, MPV 10.8 H, Neut % (Auto) 74.4, Lymph % (Auto) 16.9, Perry % (Auto) 5.9, Eos % (Auto) 2.4, Baso % (Auto) 0.3, Neut # (Auto) 3.7, Lymph # (Auto) 0.9, Perry # (Auto) 0.3, Eos # (Auto) 0.1, Baso # (Auto) 0.0, Sodium 139, Potassium 3.1 L, Chloride 104, Carbon Dioxide 24, Anion Gap 14.1, BUN 13 D, Creatinine 0.80, Estimated Creat Clear 85, Estimated GFR 93, Est GFR ( Amer) 113, Glucose 156 H, Calcium 8.2 L, Magnesium 1.7, Total Bilirubin 1.0, AST 24, ALT 17, Alkaline Phosphatase 58, Total Protein 5.4 L, Albumin 3.2 L, Globulin 2.2, Albumin/Globulin Ratio 1.5 I & O for Labs for Last 24 Hours: Intake & Output 07/12/23 07/13/23 07/14/23 07/15/23 23:59 23:59 23:59 23:59 Intake Total 360 / 720 870 / 1070 1660 / 1660 270 / 270 Output Total 200 / 200 2 / 01 21 / Balance 160 / 520 869 / 1069 1658 / 1656 267 / 267 Weight 99.79 kg 100.868 kg 100.82 kg 101.514 kg Constitutional: Present no acute distress, average body habitus and cooperative Head: Present atraumatic and normocephalic ENT: Present normal exam Neck: Present normal inspection Respiratory: Present normal respiratory effort and able to speak in complete sentences; Absent rhonchi, wheezes or crackles Cardiac: Present Reg Rate and Rhyth
[2023-07-15 16:33] LABS: Hematocrit 24.3 % (42.0-52.0); Hemoglobin 7.8 g/dL (14.1-18.0)
--- NOTE | 2023-07-15 21:05 | PC.NURSE ---
Patient IV in right forearm infiltrated and removed. Patient refused for new IV to be placed at this time. Hospitalist notified.
[2023-07-15 22:17] LABS: POC Glucose,Bedside 224 (70-110)
--- NOTE | 2023-07-16 00:45 | PC.NURSE ---
pt has a current order for tele monitoring - pt refused tele at this time.
[2023-07-16 04:00] VITALS: BP 133/63; PULSE 89; RESP 16; TEMP 36.8; O2SAT 93
[2023-07-16 05:21] LABS: POC Glucose,Bedside 182 (70-110)
[2023-07-16 07:26] LABS: Alanine Aminotransferase 18 U/L (12-78); Albumin Level 2.9 g/dl (3.5-5.0); Albumin/Globulin Ratio 1.3 (1.1-1.8); Alkaline Phosphatase 55 U/L (38-126); Anion Gap 12.3 mEq/L (5-15); Aspartate Amino Transferase 22 U/L (17-59); Bilirubin,Total 0.8 mg/dl (0.2-1.3); Blood Urea Nitrogen 9 mg/dl (9-20); Calcium 7.9 mg/dl (8.4-10.2); Carbon Dioxide 26 mmol/L (22.0-30.0); Chloride 106 mmol/L (98-107); Creatinine Clearance Estimated 86 mL/min (50-200); Estimated Glomerular Filt Rate 81 ml/min (>60); GFR (African American) 98 ML/MIN (>60); Globulin 2.2 g/dL (1.3-3.2); Glucose 149 mg/dl (74-100); Potassium 3.3 mmoL/L (3.5-5.1); Sodium 141 mmol/L (136-145); Total Protein,Serum 5.1 g/dl (6.3-8.2)
[2023-07-16 07:29] LABS: Basophils % 0.2 % (0.1-2.0); Eosinophils # 0.1 K/mm3 (0.0-0.4); Hematocrit 24.6 % (42.0-52.0); Hemoglobin 7.6 g/dL (14.1-18.0); Lymphocytes # 0.5 K/mm3 (0.7-4.5); Lymphocytes % 8.3 % (10-50); Mean Corpuscular Hemoglobin 22.2 pg (27.0-31.2); Mean Corpuscular Volume 71.7 fl (80-94); Mean Platelet Volume 8.2 fl (7.4-10.4); Monocytes # 0.3 K/mm3 (0.1-1.0); Monocytes % 4.7 % (1.7-9.3); Neutrophils # 5.6 K/mm3 (1.8-7.8); Neutrophils % 84.8 % (37.0-80.0); Platelet Count 143 K/mm3 (142-424); Red Blood Count 3.43 M/mm3 (4.60-6.20); Red Cell Distribution Width 23.7 % (11.5-17.5); White Blood Count 6.6 K/mm3 (4.8-10.8)
[2023-07-16 07:47] VITALS: BP 142/71; PULSE 110; RESP 18; TEMP 36.9; O2SAT 95
[2023-07-16 07:54] LABS: Chol/HDL Ratio 3.2 (1-3.5); Cholesterol 63 mg/dl (140-200); HDL Cholesterol 20 mg/dl (40-60); Triglycerides 79 mg/dl (30-150); VLDL Cholesterol 16 mg/dL (0-40)
[2023-07-16 08:05] LABS: Direct LDL Cholesterol 36.92 mg/dL (100-129)
[2023-07-16 11:13] VITALS: BP 120/72; PULSE 96; RESP 18; TEMP 36.6; O2SAT 99
--- NOTE | 2023-07-16 11:28 | SW/DCPLANNER ---
Addendum entered by Lorenza Bertrand 07/16/23 14:04: Patient's daughter stated that she prefer bringing patient back to [facility] for three consecutive days after discharge for lab draws. Original Note: I attempted to speak w/ patient regarding plans once medically stable for discharge. MD stated that patient will discharge tomorrow pending no setbacks and will require follow up w/ CBC for three days straight after discharge. I went in patient's room to speak w/ him this AM: patient asked that I return to discuss discharge plans when his daughter arrives at [facility] this afternoon. I have provided my name and number for daughter to contact me once she arrives at [facility] today.
[2023-07-16 11:42] LABS: POC Glucose,Bedside 181 (70-110)
--- NOTE | 2023-07-16 12:52 | EXP.CARD.PN ---
Subjective Subjective Date: 07/16/23 Time: 09:00 Principal diagnosis: anemia, GI bleed Interval history: This is an 82-year-old white gentleman who presented to the emergency department complaints of hemoptysis and an episode of hematemesis. The patient has known atrial fibrillation on chronic Xarelto use with coronary artery stenting approximately 2 weeks ago on dual antiplatelet therapy with Plavix and aspirin. The patient was on triple therapy with Plavix, aspirin and Xarelto. His Xarelto and aspirin were initially held. The patient did receive 2 units of packed red blood cells. EGD and colonoscopy both showed no active bleeding. AVMs were identified on the colonoscopy. A capsule endoscopy has been recommended for further evaluation of his GI bleed. The patient was switched over to Eliquis yesterday. He did have a slight drop in his hemoglobin overnight. He denies any recurrence of his hemoptysis or hematemesis. No recurrence of black tarry stools. He denies any chest pain or pressure. He denies any shortness of breath or edema. He denies any fever, chills, nausea, vomiting, diarrhea, PND or orthopnea. The patient is still having weakness and fatigue. He still appears very pale in color this morning. Exam Data for Last 24 hours Vital signs and Labs for Last 24 Hours: Temp Pulse Resp BP Pulse Ox O2 Del Method O2 Flow Rate 97.9 F 96 H 18 120/72 99 Room Air 3 07/16/23 11:13 07/16/23 11:13 07/16/23 11:13 07/16/23 11:13 07/16/23 11:13 07/16/23 11:13 07/15/23 08:15 Laboratory Results - last 24 hr 07/15/23 16:15: Hgb 7.8 L, Hct 24.3 L 07/15/23 20:06: POC Glucose 224 H 07/16/23 05:14: POC Glucose 182 H 07/16/23 06:50: WBC 6.6 D, RBC 3.43 L, Hgb 7.6 L, Hct 24.6 L, MCV 71.7 L, MCH 22.2 L, MCHC 31.0 L, RDW 23.7 H, Plt Count 143, MPV 8.2, Neut % (Auto) 84.8 H, Lymph % (Auto) 8.3 L, [place] % (Auto) 4.7, Eos % (Auto) 2.0, Baso % (Auto) 0.2, Neut # (Auto) 5.6, Lymph # (Auto) 0.5 L, [place] # (Auto) 0.3, Eos # (Auto) 0.1, Baso # (Auto) 0.0, Sodium 141, Potassium 3.3 L, Chloride 106, Carbon Dioxide 26, Anion Gap 12.3, BUN 9 D, Creatinine 0.90, Estimated Creat Clear 86, Estimated GFR 81, Est GFR ( Amer) 98, Glucose 149 H, Calcium 7.9 L, Total Bilirubin 0.8, AST 22, ALT 18, Alkaline Phosphatase 55, Total Protein 5.1 L, Albumin 2.9 L, Globulin 2.2, Albumin/Globulin Ratio 1.3, Triglycerides 79, Cholesterol 63 L, LDL Cholesterol Direct 36.92 L, VLDL Cholesterol 16, HDL Cholesterol 20 L, Cholesterol/HDL Ratio 3.2 07/16/23 11:34: POC Glucose 181 H I & O for Last 24 hours: Intake & Output 07/13/23 07/14/23 07/15/23 07/16/23 23:59 23:59 23:59 23:59 Intake Total 870 / 1070 1660 / 1660 510 / 510 960 / 960 Output Total 2 / 3 0 / 0 Balance 869 / 1069 1658 / 1656 507 / 507 960 / 960 Weight 222 lb 6 oz 222 lb 4.321 oz 223 lb 12.8 oz 226 lb 11.2 oz Constitutional Constitutional: no acute distress and average body habitus *Routine HEENT Exam Head: Present normocephalic and atraumatic ENT: Present mucous membranes moist *Routine Neck Exam Neck: Present supple, full ROM and normal carotid upstroke; Absent JVD, carotid bruit or lymphadenopathy *Routine Respiratory Exam Respiratory: Present CTA bilaterally, normal respiratory effort, able to speak in complete sentences and symmetric chest movement *Routine Cardiovascular Exam Cardiovascular: Present Normal S1, Normal S2 and irregularly irregular; Absent murmur or gallop *Routine Abdominal Exam Abdominal: Present soft and normoactive bowel sounds; Absent tenderness, distended or organomegaly *Routine Extremities Exam Extremities: Present full ROM, pulses intact and normal capillary refill; Absent cyanosis, clubbing or edema *Routine Skin Exam Skin: Present intact, pallor and warm; Absent erythema *Routine Neurological Exam Neurological: Present alert, oriented X3 and CN II-XII intact; Absent sensory deficit or motor deficit Routine Psychiatric Exam Psychiatric: Present normal
[2023-07-16 13:41] LABS: Hematocrit 27.7 % (42.0-52.0)
[2023-07-16 14:02] LABS: Hemoglobin 8.5 g/dL (14.1-18.0)
--- NOTE | 2023-07-16 14:14 | EXP.PN ---
Subjective *Date: 07/16/23 *Time: 14:26 Interval history: The patient is seen and examined today. I am accompanied by nursing staff for his evaluation. He identifies no abdominal pain, further hematemesis or melena. He is tolerating his transition to Eliquis with no reported adverse events. He denies unusual headaches or excessive bruising. He is tolerating p.o. His morning hemoglobin is 7.6. He is due to start IV iron. Exam Data for Last 24 hours Vital signs and Labs for Last 24 Hours: Temp Pulse Resp BP Pulse Ox O2 Del Method O2 Flow Rate 97.9 F 96 H 18 120/72 99 Room Air 3 07/16/23 11:13 07/16/23 11:13 07/16/23 11:13 07/16/23 11:13 07/16/23 11:13 07/16/23 12:53 07/15/23 08:15 Laboratory Results - last 24 hr 07/15/23 16:15: Hgb 7.8 L, Hct 24.3 L 07/15/23 20:06: POC Glucose 224 H 07/16/23 05:14: POC Glucose 182 H 07/16/23 06:50: WBC 6.6 D, RBC 3.43 L, Hgb 7.6 L, Hct 24.6 L, MCV 71.7 L, MCH 22.2 L, MCHC 31.0 L, RDW 23.7 H, Plt Count 143, MPV 8.2, Neut % (Auto) 84.8 H, Lymph % (Auto) 8.3 L, Dunn % (Auto) 4.7, Eos % (Auto) 2.0, Baso % (Auto) 0.2, Neut # (Auto) 5.6, Lymph # (Auto) 0.5 L, Dunn # (Auto) 0.3, Eos # (Auto) 0.1, Baso # (Auto) 0.0, Sodium 141, Potassium 3.3 L, Chloride 106, Carbon Dioxide 26, Anion Gap 12.3, BUN 9 D, Creatinine 0.90, Estimated Creat Clear 86, Estimated GFR 81, Est GFR ( Amer) 98, Glucose 149 H, Calcium 7.9 L, Total Bilirubin 0.8, AST 22, ALT 18, Alkaline Phosphatase 55, Total Protein 5.1 L, Albumin 2.9 L, Globulin 2.2, Albumin/Globulin Ratio 1.3, Triglycerides 79, Cholesterol 63 L, LDL Cholesterol Direct 36.92 L, VLDL Cholesterol 16, HDL Cholesterol 20 L, Cholesterol/HDL Ratio 3.2 07/16/23 11:34: POC Glucose 181 H 07/16/23 13:15: Hgb 8.5 L D, Hct 27.7 L I & O for Last 24 hours: Intake & Output 07/13/23 07/14/23 07/15/23 07/16/23 23:59 23:59 23:59 23:59 Intake Total 870 / 1070 1660 / 1660 510 / 510 1200 / 1200 Output Total 0 / 0 Balance 869 / 1069 1658 / 1656 507 / 507 1200 / 1200 Weight 100.868 kg 100.82 kg 101.514 kg 102.829 kg Constitutional Constitutional: no acute distress and cooperative *Routine HEENT Exam Head: Present normocephalic Eye: Present EOMI and PERRL ENT: Present mucous membranes moist *Routine Neck Exam Neck: Present supple and trachea midline; Absent lymphadenopathy *Routine Respiratory Exam Respiratory: Present rhonchi, normal respiratory effort and symmetric chest movement *Routine Cardiovascular Exam Cardiovascular: Present RRR, Normal S1 and Normal S2 *Routine Abdominal Exam Abdominal: Present soft and normoactive bowel sounds; Absent tenderness *Routine Extremities Exam Extremities: Present full ROM and normal capillary refill *Routine Skin Exam Skin: Present warm; Absent rash *Routine Neurological Exam Neurological: Present alert, oriented X3, moving all extremities, vision grossly intact, hearing grossly intact and normal speech; Absent sensory deficit or motor deficit Routine Psychiatric Exam Psychiatric: Present normal affect, normal thought process, cooperative, good insight and good judgment Assessment and Plan *Assessment and plan (1) Acute blood loss anemia: Status: Acute Category: Medical Code(s): D62 - Acute posthemorrhagic anemia (2) Hematemesis: Status: Acute Qualifiers: Nausea presence: without nausea Qualified Code(s): K92.0 - Hematemesis Category: Medical Code(s): K92.0 - Hematemesis (3) GI bleed: Status: Acute Category: Medical Code(s): K92.2 - Gastrointestinal hemorrhage, unspecified (4) Hemoptysis: Status: Acute Category: Medical Code(s): R04.2 - Hemoptysis (5) Anticoagulated: Status: Acute Category: Medical Code(s): Z79.01 - MCFP (current) use of anticoagulants (6) Coronary artery disease: Status: Acute Qualifiers: Associated angina: without angina Cor
[2023-07-16 15:08] VITALS: BP 132/69; PULSE 89; RESP 18; TEMP 37; O2SAT 97
[2023-07-16 20:00] VITALS: BP 119/64; PULSE 80; RESP 19; TEMP 36.9; O2SAT 93
[2023-07-16 20:35] LABS: POC Glucose,Bedside 264 (70-110)
[2023-07-17] VITALS: BP 128/71; PULSE 81; RESP 19; TEMP 36.8; O2SAT 96
[2023-07-17 04:00] VITALS: BP 149/71; PULSE 94; RESP 18; TEMP 36.9; O2SAT 94
[2023-07-17 05:45] LABS: POC Glucose,Bedside 149 (70-110)
--- NOTE | 2023-07-17 05:46 | PC.NURSE ---
no acute changes t/o shift. pt seems like he would rather be left alone, but still pleasant. wants to know when IV can come out, educated him that we need to leave it in r/t AM infusions. daughter at bedside. pt bed locked/lowest position.
[2023-07-17 06:32] LABS: Eosinophils # 0.2 K/mm3 (0.0-0.4); Lymphocytes # 0.6 K/mm3 (0.7-4.5); Monocytes # 0.3 K/mm3 (0.1-1.0); Red Cell Distribution Width 22.7 % (11.5-17.5)
[2023-07-17 06:41] LABS: Anion Gap 10.5 mEq/L (5-15); Blood Urea Nitrogen 9 mg/dl (9-20); Calcium 7.7 mg/dl (8.4-10.2); Carbon Dioxide 25 mmol/L (22.0-30.0); Chloride 109 mmol/L (98-107); Creatinine Clearance Estimated 86 mL/min (50-200); Estimated Glomerular Filt Rate 93 ml/min (>60); GFR (African American) 113 ML/MIN (>60); Glucose 138 mg/dl (74-100); Potassium 3.5 mmoL/L (3.5-5.1); Sodium 141 mmol/L (136-145)
[2023-07-17 06:52] LABS: Basophils % 0.2 % (0.1-2.0); Hematocrit 24.3 % (42.0-52.0); Lymphocytes % 10.6 % (10-50); Mean Corpuscular HGB Conc 29.3 g/dL (31.8-35.4); Mean Corpuscular Hemoglobin 22.2 pg (27.0-31.2); Mean Corpuscular Volume 75.7 fl (80-94); Monocytes % 5.8 % (1.7-9.3); Neutrophils # 4.2 K/mm3 (1.8-7.8); Neutrophils % 80.5 % (37.0-80.0); Platelet Count 139 K/mm3 (142-424); Red Blood Count 3.22 M/mm3 (4.60-6.20); White Blood Count 5.3 K/mm3 (4.8-10.8)
[2023-07-17 06:57] LABS: Hemoglobin 7.1 g/dL (14.1-18.0)
[2023-07-17 08:00] VITALS: BP 140/80; PULSE 90; RESP 16; TEMP 36.7; O2SAT 96
[2023-07-17 08:32] VITALS: PULSE 90
[2023-07-17 11:15] VITALS: BP 126/70; PULSE 88; RESP 16; TEMP 36.7; O2SAT 97
[2023-07-17 11:22] LABS: POC Glucose,Bedside 198 (70-110)
[2023-07-17 13:31] LABS: Hemoglobin 7.9 g/dL (14.1-18.0)
[2023-07-17 13:32] LABS: Hematocrit 27.2 % (42.0-52.0)
--- NOTE | 2023-07-17 14:00 | EXP.CARD.PN ---
Subjective Subjective Date: 07/17/23 Time: 09:30 Principal diagnosis: anemia, GI bleed Interval history: This is an 82-year-old gentleman who was admitted to the hospital with complaints of hemoptysis and hematic emesis. Patient was found to be anemic. He did undergo EGD and colonoscopy with no active bleeding. AVMs were identified on the colonoscopy but no bleeding was noted. A capsule endoscopy was recommended. This morning he denies any chest pain or pressure. He denies any shortness of breath or edema. He denies any fever, chills, nausea, vomiting, diarrhea, PND orthopnea. He denies any hemoptysis or hematic emesis. He denies any black tarry stools. He still feeling weak and fatigued. He is very pale in color this morning. The patient's hemoglobin did drop down to 7.1 this morning. Exam Data for Last 24 hours Vital signs and Labs for Last 24 Hours: Temp Pulse Resp BP Pulse Ox O2 Del Method O2 Flow Rate 98.0 F 88 16 126/70 97 Room Air 3 07/17/23 11:15 07/17/23 11:15 07/17/23 11:15 07/17/23 11:15 07/17/23 11:15 07/17/23 12:35 07/15/23 08:15 Laboratory Results - last 24 hr 07/16/23 13:15: Hgb 8.5 L D 07/16/23 20:11: POC Glucose 264 H 07/17/23 05:36: WBC 5.3, RBC 3.22 L, Hgb 7.1 L D, Hct 24.3 L, MCV 75.7 L, MCH 22.2 L, MCHC 29.3 L, RDW 22.7 H, Plt Count 139 L, MPV 8.0, Neut % (Auto) 80.5 H, Lymph % (Auto) 10.6, [place] % (Auto) 5.8, Eos % (Auto) 3.0, Baso % (Auto) 0.2, Neut # (Auto) 4.2, Lymph # (Auto) 0.6 L, [place] # (Auto) 0.3, Eos # (Auto) 0.2, Baso # (Auto) 0.0, Sodium 141, Potassium 3.5, Chloride 109 H, Carbon Dioxide 25, Anion Gap 10.5, BUN 9, Creatinine 0.80, Estimated Creat Clear 86, Estimated GFR 93, Est GFR ( Amer) 113, Glucose 138 H, Calcium 7.7 L 07/17/23 05:39: POC Glucose 149 H 07/17/23 11:15: POC Glucose 198 H 07/17/23 13:00: Hgb 7.9 L D, Hct 27.2 L I & O for Last 24 hours: Intake & Output 07/14/23 07/15/23 07/16/23 07/17/23 23:59 23:59 23:59 23:59 Intake Total 1660 / 1660 510 / 510 1810 / 1810 510 / 510 Output Total / 3 / 0 / 0 0 / 0 Balance 1658 / 1656 507 / 507 1810 / 1810 510 / 510 Weight 222 lb 4.321 oz 223 lb 12.8 oz 226 lb 11.2 oz 226 lb 12.8 oz Constitutional Constitutional: no acute distress and cooperative *Routine HEENT Exam Head: Present normocephalic Eye: Present EOMI and PERRL ENT: Present mucous membranes moist *Routine Neck Exam Neck: Present supple and trachea midline; Absent lymphadenopathy *Routine Respiratory Exam Respiratory: Present rhonchi, normal respiratory effort and symmetric chest movement *Routine Cardiovascular Exam Cardiovascular: Present RRR, Normal S1 and Normal S2 *Routine Abdominal Exam Abdominal: Present soft and normoactive bowel sounds; Absent tenderness *Routine Extremities Exam Extremities: Present full ROM and normal capillary refill *Routine Skin Exam Skin: Present pallor and warm; Absent rash *Routine Neurological Exam Neurological: Present alert, oriented X3, moving all extremities, vision grossly intact, hearing grossly intact and normal speech; Absent sensory deficit or motor deficit Routine Psychiatric Exam Psychiatric: Present normal affect, normal thought process, cooperative, good insight and good judgment Progress Note: A&P Assessment and plan (1) Acute blood loss anemia: Status: Acute (2) Hematemesis: Status: Acute (3) GI bleed: Status: Acute (4) Hemoptysis: Status: Acute (5) Anticoagulated: Status: Acute (6) Coronary artery disease: Status: Acute (7) Hypertension: Status: Acute (8) A-fib: Status: Acute (9) Diabetes mellitus: Status: Acute (10) Hyperlipidemia: Status: Acute (11) Former smoker: Status: Acute Assessment and Plan Assessment and Plan for All Diagnoses:: Plan: 1. The patient presented to the emergency department complaints of hemoptysis and hematic emesis. He was found to be anemic and admitted for further evaluation. H
--- NOTE | 2023-07-17 14:33 | EXP.PN ---
Subjective *Date: 07/17/23 *Time: 14:39 Interval history: The patient is seen and examined today. He is accompanied by his daughter. I am accompanied by nursing staff. He remains afebrile with stable vital signs and saturating appropriately on room air. He denies abdominal pain. He reports no hematemesis, melena or hematochezia. His last bowel movement was 48 hours ago. He reports tolerating p.o. well with no adverse events. His morning hemoglobin is 7.1. He continues with IV iron therapy. We have discussed his hemoglobin, anticoagulation therapy and concerns with AVM bleeding. He is agreeable to transition his care to a tertiary facility for gastroenterology and IR services. His preference is [facility]. Exam Data for Last 24 hours Vital signs and Labs for Last 24 Hours: Temp Pulse Resp BP Pulse Ox O2 Del Method O2 Flow Rate 98.0 F 88 16 126/70 97 Room Air 3 07/17/23 11:15 07/17/23 11:15 07/17/23 11:15 07/17/23 11:15 07/17/23 11:15 07/17/23 12:35 07/15/23 08:15 Laboratory Results - last 24 hr 07/16/23 20:11: POC Glucose 264 H 07/17/23 05:36: WBC 5.3, RBC 3.22 L, Hgb 7.1 L D, Hct 24.3 L, MCV 75.7 L, MCH 22.2 L, MCHC 29.3 L, RDW 22.7 H, Plt Count 139 L, MPV 8.0, Neut % (Auto) 80.5 H, Lymph % (Auto) 10.6, [place] % (Auto) 5.8, Eos % (Auto) 3.0, Baso % (Auto) 0.2, Neut # (Auto) 4.2, Lymph # (Auto) 0.6 L, [place] # (Auto) 0.3, Eos # (Auto) 0.2, Baso # (Auto) 0.0, Sodium 141, Potassium 3.5, Chloride 109 H, Carbon Dioxide 25, Anion Gap 10.5, BUN 9, Creatinine 0.80, Estimated Creat Clear 86, Estimated GFR 93, Est GFR ( Amer) 113, Glucose 138 H, Calcium 7.7 L 07/17/23 05:39: POC Glucose 149 H 07/17/23 11:15: POC Glucose 198 H 07/17/23 13:00: Hgb 7.9 L D, Hct 27.2 L I & O for Last 24 hours: Intake & Output 07/14/23 07/15/23 07/16/23 07/17/23 23:59 23:59 23:59 23:59 Intake Total 1660 / 1660 510 / 510 1810 / 1810 510 / 510 Output Total 2 / 4 3 / 3 0 / 0 0 / 0 Balance 1658 / 1656 507 / 507 1810 / 1810 510 / 510 Weight 100.82 kg 101.514 kg 102.829 kg 102.875 kg Constitutional Constitutional: no acute distress and cooperative *Routine HEENT Exam Head: Present normocephalic Eye: Present EOMI and PERRL ENT: Present mucous membranes moist *Routine Neck Exam Neck: Present supple and trachea midline; Absent lymphadenopathy *Routine Respiratory Exam Respiratory: Present rhonchi, normal respiratory effort and symmetric chest movement *Routine Cardiovascular Exam Cardiovascular: Present RRR, Normal S1 and Normal S2 *Routine Abdominal Exam Abdominal: Present soft and normoactive bowel sounds; Absent tenderness *Routine Extremities Exam Extremities: Present full ROM and normal capillary refill *Routine Skin Exam Skin: Present warm; Absent rash *Routine Neurological Exam Neurological: Present alert, oriented X3, moving all extremities, vision grossly intact, hearing grossly intact and normal speech; Absent sensory deficit or motor deficit Routine Psychiatric Exam Psychiatric: Present normal affect, normal thought process, cooperative, good insight and good judgment Assessment and Plan *Assessment and plan (1) Acute blood loss anemia: Status: Acute Category: Medical Code(s): D62 - Acute posthemorrhagic anemia (2) Hematemesis: Status: Acute Qualifiers: Nausea presence: without nausea Qualified Code(s): K92.0 - Hematemesis Category: Medical Code(s): K92.0 - Hematemesis (3) GI bleed: Status: Acute Category: Medical Code(s): K92.2 - Gastrointestinal hemorrhage, unspecified (4) Hemoptysis: Status: Acute Category: Medical Code(s): R04.2 - Hemoptysis (5) Anticoagulated: Status: Acute Category: Medical Code(s): Z79.01 - penitentiary (current) use of anticoagulants (6) Coronary artery disease: Status: Acute Qualifiers: Associated angina: without angina Coronary Disease-Ass
[2023-07-17 15:12] VITALS: BP 124/73; PULSE 78; RESP 16; TEMP 36.8; O2SAT 94
[2023-07-17 16:17] LABS: POC Glucose,Bedside 221 (70-110)
--- NOTE | 2023-07-17 16:20 | EXP.DC.SUM ---
General Admission date:: 07/12/23 Discharge date: 07/17/23 HPI HPI HPI: Mr. Saini is an 82-year-old male with history of A-fib on chronic Xarelto, CAD with recent stent 2 weeks ago, hypertension, HLD, T2DM. He presented to the ER with complaint of coughing up blood last night and having an episode of burping up blood this morning after taking his morning pills. Complains of feeling more weak and fatigued. His episode of belching this morning produced a significant amount of blood which concerned him causing him to come to the ER. He has a remote history 10 to 15 years ago of ulcers but has been tolerant of Xarelto for many years with no issues. Was recently initiated on triple therapy 2 weeks ago. He denies any melena or bright red blood per rectum. Denies any specific or significant epigastric pain. States his blood pressure has been soft ever since his heart cath. Takes omeprazole for GERD. Afebrile with no syncope. On evaluation in the ER, patient found to have a hemoglobin 10.5. Hemoglobin 2 weeks ago above 13. Has not had a bowel movement today. ER consulted medicine for admission for serial labs and management of GI bleed. Hospital Course Hospital Course Hospital Course: The patient was admitted to the telemetry floor with cardiology and general surgery consultations. Imaging, labs and inflammatory markers were trended. Problems addressed as follows: 82-year-old male with CAD, A-fib, Diabetes, hypertension, hypothyroidism with a recent heart cath 2 weeks ago who presents with hematemesis. Patient on triple therapy after heart cath with aspirin, Plavix, Xarelto. Trending hemoglobin. No further black or melenic stools. EGD did not show any ulcers or erosions but did have atypical tissue protrusion in the esophagus. C-scope performed this morning with AVM of the cecum and polyp but no active bleeding. No blood in digestive tract on either scope. Has had no further bleeding. Cardiology and surgery consulted, appreciate their recommendations. Problems addressed as follows: Upper GI bleed Acute blood loss anemia Melenic stools -Remote Hx of Bleeding ulcers. Has been on Xarelto (atrial fibrillation) for many years without bleeding. Recently started on triple therapy after left heart cath 06/27/2023. -Hemoglobin 13.42 weeks ago with microcytosis since May 2023, 10.3 on admission. Improved to 8 after transfusion of 2 units PRBC's. No active bleeding, trending hemoglobin and assessing for stability -Discussed case with surgery, S/P EGD 07/13/2023 with no bleeding. Colonoscopy 07/15/2023 with concerns of AVM in cecum not bleeding at the time of procedure. No active bleeding at this time. Outpatient capsule endoscopy recommended per GI. -Continue with PPI therapy. -Discussed case with cardiology -CTA of chest which identified no acute lesions -Eliquis therapy per cards -Plavix therapy per cards -Protonix 40 mg IV twice daily -Trending hemoglobin -IV iron for microcytosis CAD Status post PCI 2 weeks ago with ALEXIS Hypertension Hyperlipidemia -Continue Plavix in the setting of recent stents; holding aspirin given continued bleeding -Continue statin 20 mg daily, continue digoxin 125 mcg daily, continue metoprolol 100 mg daily; recommend holding diltiazem 300 mg and HCTZ due to hypotension, continue empagliflozin 25 mg daily Hypothyroidism Continue levothyroxine 25 mcg daily Diabetes Routine blood sugar monitoring Sliding scale insulin Carbohydrate controlled diet CODE STATUS: Full code VTE prophylaxis: Factor Xa inhibitor The patient is hospitalized day 5 with above diagnoses complicated by his advanced age and inability to pinpoint active bleeding on bi-directional endoscopy (07/13/2023 EGD & 07/15/2025 colonoscopy). Patient is amendable and agreeable to transition care to tertiary care center for GI/IR services. Medications adjustments include discontinuing aspirin and Xarelto and proceeding with Plavix with empiric sta
== END 2023-07-17 16:48 | disposition short-term general hospital (02) | DRG 378 ==
LOC: ER 14:28 → 2ND 14:51
PROVIDERS: Family Medicine; Nurse Practitioner Family; Surgery; Admitting Provider Internal Medicine Adolescent Medicine; Emergency Provider Student in an Organized Health Care Education/Training Program; PCP Family Medicine; Visit Provider Internal Medicine Adolescent Medicine
PROC: 0DJ08ZZ Inspection of Upper Intestinal Tract, Via Natural or Artificial Opening Endoscopic (ICD-10-PCS; CPT 43235; principal; 2023-07-13 07:55)
PROC: 0DJD8ZZ Inspection of Lower Intestinal Tract, Via Natural or Artificial Opening Endoscopic (ICD-10-PCS; CPT 45378; principal; 2023-07-15 07:00)
DX: K92.2 Gastrointestinal hemorrhage, unspecified (principal); D62 Acute posthemorrhagic anemia; I48.11 Longstanding persistent atrial fibrillation; K92.0 Hematemesis; Z79.01 Long term (current) use of anticoagulants; I25.10 Atherosclerotic heart disease of native coronary artery without angina pectoris; E78.5 Hyperlipidemia, unspecified; E11.69 Type 2 diabetes mellitus with other specified complication; I10 Essential (primary) hypertension; E03.9 Hypothyroidism, unspecified; I48.91 Unspecified atrial fibrillation; Z85.828 Personal history of other malignant neoplasm of skin; Z65.5 Exposure to disaster, war and other hostilities; K21.9 Gastro-esophageal reflux disease without esophagitis; Z79.84 Long term (current) use of oral hypoglycemic drugs; K29.70 Gastritis, unspecified, without bleeding; K63.5 Polyp of colon; K57.90 Diverticulosis of intestine, part unspecified, without perforation or abscess without bleeding; Q27.39 Arteriovenous malformation, other site
CPT/HCPCS: 43239; 45380; 45382; 36415; 71045; 71275; 80048; 80053; 80061; 81001; 82962; 83735; 84484; 85014; 85018; 85025; 85610; 86850; 88305; 93005; 99285; C2618; J1756; J2704; P9016; Q9967

== ENCOUNTER → 2023-07-25 09:22 | Outpatient (CLI) | payer MEDICARE, SELFPAY ==
[2023-07-25 10:40] LABS: Basophils % 0.6 % (0.1-2.0); Eosinophils # 0.1 K/mm3 (0.0-0.4); Hematocrit 31.5 % (42.0-52.0); Hemoglobin 9.6 g/dL (14.1-18.0); Lymphocytes # 0.9 K/mm3 (0.7-4.5); Lymphocytes % 13.6 % (10-50); Mean Corpuscular HGB Conc 30.5 g/dL (31.8-35.4); Mean Corpuscular Hemoglobin 23.6 pg (27.0-31.2); Mean Corpuscular Volume 77.3 fl (80-94); Mean Platelet Volume 8.5 fl (7.4-10.4); Monocytes # 0.3 K/mm3 (0.1-1.0); Monocytes % 4.8 % (1.7-9.3); Neutrophils # 4.9 K/mm3 (1.8-7.8); Platelet Count 201 K/mm3 (142-424); Red Blood Count 4.07 M/mm3 (4.60-6.20); Red Cell Distribution Width 24.8 % (11.5-17.5); White Blood Count 6.2 K/mm3 (4.8-10.8)
[2023-07-25 12:10] LABS: Chloride 105 mmol/L (98-107); Potassium 3.5 mmoL/L (3.5-5.1); Sodium 141 mmol/L (136-145)
[2023-07-25 12:13] LABS: Alanine Aminotransferase 15 U/L (12-78); Albumin Level 3.6 g/dl (3.5-5.0); Alkaline Phosphatase 72 U/L (38-126); Anion Gap 16.5 mEq/L (5-15); Aspartate Amino Transferase 21 U/L (17-59); Bilirubin,Direct 0.5 mg/dl (0.0-0.4); Bilirubin,Indirect 0.6 mg/dL (0.0-0.9); Bilirubin,Total 1.1 mg/dl (0.2-1.3); Bilirubin,Unconjugated 0.6 mg/dL (0.0-1.1); Blood Urea Nitrogen 11 mg/dl (9-20); Calcium 8.3 mg/dl (8.4-10.2); Carbon Dioxide 23 mmol/L (22.0-30.0); Cholesterol 76 mg/dl (140-200); Estimated Glomerular Filt Rate 108 ml/min (>60); GFR (African American) 131 ML/MIN (>60); Glucose 124 mg/dl (74-100); Total Protein,Serum 6.1 g/dl (6.3-8.2); Triglycerides 108 mg/dl (30-150); VLDL Cholesterol 22 mg/dL (0-40)
[2023-07-25 12:14] LABS: Chol/HDL Ratio 3.2 (1-3.5); HDL Cholesterol 24 mg/dl (40-60); Magnesium 1.7 mg/dl (1.6-2.3)
[2023-07-25 12:24] LABS: Digoxin < 0.40 ng/ml (0.2-2.00)
[2023-07-25 12:25] LABS: Direct LDL Cholesterol 40.37 mg/dL (100-129)
== END ==
PROVIDERS: PCP Family Medicine; Visit Provider Internal Medicine
DX: E11.9 Type 2 diabetes mellitus without complications (principal); E78.5 Hyperlipidemia, unspecified; I10 Essential (primary) hypertension; I48.91 Unspecified atrial fibrillation; R06.09 Other forms of dyspnea; R94.31 Abnormal electrocardiogram [ECG] [EKG]; Z79.01 Long term (current) use of anticoagulants; Z87.891 Personal history of nicotine dependence; Z79.84 Long term (current) use of oral hypoglycemic drugs
CPT/HCPCS: 36415; 80048; 80061; 80076; 80162; 83735; 85025

== ENCOUNTER → 2023-10-17 10:41 | Outpatient (CLI) | payer MEDICARE, SELFPAY ==
[2023-10-17 11:05] LABS: Basophils % 0.3 % (0.1-2.0); Eosinophils # 0.2 K/mm3 (0.0-0.4); Eosinophils % 1.5 % (0.1-12.0); Hemoglobin 14.5 g/dL (14.1-18.0); Lymphocytes # 1.6 K/mm3 (0.7-4.5); Lymphocytes % 13.2 % (10-50); Mean Corpuscular HGB Conc 32.3 g/dL (31.8-35.4); Mean Corpuscular Hemoglobin 23.1 pg (27.0-31.2); Mean Corpuscular Volume 71.7 fl (80-94); Mean Platelet Volume 8.6 fl (7.4-10.4); Monocytes # 0.5 K/mm3 (0.1-1.0); Monocytes % 3.8 % (1.7-9.3); Neutrophils # 9.7 K/mm3 (1.8-7.8); Neutrophils % 81.2 % (37.0-80.0); Platelet Count 197 K/mm3 (142-424); Red Blood Count 6.27 M/mm3 (4.60-6.20); Red Cell Distribution Width 20.6 % (11.5-17.5); White Blood Count 11.9 K/mm3 (4.8-10.8)
[2023-10-17 11:49] LABS: Alanine Aminotransferase 34 U/L (12-78); Albumin Level 4.3 g/dl (3.5-5.0); Alkaline Phosphatase 87 U/L (38-126); Aspartate Amino Transferase 39 U/L (17-59); Bilirubin,Direct 0.2 mg/dl (0.0-0.4); Bilirubin,Indirect 0.8 mg/dL (0.0-0.9); Bilirubin,Unconjugated 0.8 mg/dL (0.0-1.1)
[2023-10-17 11:50] LABS: Anion Gap 13.9 mEq/L (5-15); Blood Urea Nitrogen 14 mg/dl (9-20); Calcium 8.7 mg/dl (8.4-10.2); Carbon Dioxide 24 mmol/L (22.0-30.0); Chloride 103 mmol/L (98-107); Estimated Glomerular Filt Rate 108 ml/min (>60); GFR (African American) 131 ML/MIN (>60); Glucose 133 mg/dl (74-100); Magnesium 1.6 mg/dl (1.6-2.3); Potassium 3.9 mmoL/L (3.5-5.1); Sodium 137 mmol/L (136-145)
[2023-10-17 12:04] LABS: Free T4 (Free Thyroxine) 1.14 ng/dl (0.78-2.19)
== END ==
LOC: LAB 10:42
PROVIDERS: Physician Assistant; PCP Family Medicine; Visit Provider Nurse Practitioner
DX: D62 Acute posthemorrhagic anemia (principal); E11.9 Type 2 diabetes mellitus without complications; E78.5 Hyperlipidemia, unspecified; I11.9 Hypertensive heart disease without heart failure; I25.10 Atherosclerotic heart disease of native coronary artery without angina pectoris; I48.91 Unspecified atrial fibrillation; K92.2 Gastrointestinal hemorrhage, unspecified; R93.89 Abnormal findings on diagnostic imaging of other specified body structures; R94.31 Abnormal electrocardiogram [ECG] [EKG]; Z79.01 Long term (current) use of anticoagulants; Z79.84 Long term (current) use of oral hypoglycemic drugs; Z87.891 Personal history of nicotine dependence
CPT/HCPCS: 36415; 80048; 80076; 80162; 83735; 84439; 85025

== ENCOUNTER 2024-05-29 16:49 | Outpatient (CLI) | payer MEDICARE, SELFPAY ==
[2024-05-29 16:25] LABS: Albumin Level 4.4 g/dl (3.5-5.0); Chloride 105 mmol/L (98-107); Potassium 3.9 mmoL/L (3.5-5.1); Sodium 140 mmol/L (136-145)
[2024-05-29 16:27] LABS: Alanine Aminotransferase 19 U/L (12-78); Aspartate Amino Transferase 26 U/L (17-59); Basophils % 0.5 % (0.1-2.0); Blood Urea Nitrogen 20 mg/dl (9-20); Eosinophils # 0.2 K/mm3 (0.0-0.4); Eosinophils % 1.9 % (0.1-12.0); Estimated Glomerular Filt Rate 108 ml/min (>60); GFR (African American) 131 ML/MIN (>60); Hematocrit 47.5 % (42.0-52.0); Hemoglobin 15.4 g/dL (14.1-18.0); Lymphocytes # 1.1 K/mm3 (0.7-4.5); Lymphocytes % 13.7 % (10-50); Mean Corpuscular HGB Conc 32.5 g/dL (31.8-35.4); Mean Corpuscular Hemoglobin 31.4 pg (27.0-31.2); Mean Corpuscular Volume 96.8 fl (80-94); Mean Platelet Volume 9.5 fl (7.4-10.4); Monocytes # 0.5 K/mm3 (0.1-1.0); Monocytes % 6.2 % (1.7-9.3); Neutrophils % 77.8 % (37.0-80.0); Platelet Count 150 K/mm3 (142-424); Red Blood Count 4.91 M/mm3 (4.60-6.20); Red Cell Distribution Width 14.5 % (11.5-17.5); White Blood Count 7.7 K/mm3 (4.8-10.8)
[2024-05-29 16:28] LABS: Albumin/Globulin Ratio 1.7 (1.1-1.8); Alkaline Phosphatase 74 U/L (38-126); Anion Gap 13.9 mEq/L (5-15); Bilirubin,Total 1.4 mg/dl (0.2-1.3); Calcium 9.1 mg/dl (8.4-10.2); Carbon Dioxide 25 mmol/L (22.0-30.0); Chol/HDL Ratio 3.4 (1-3.5); Cholesterol 134 mg/dl (140-200); Globulin 2.6 g/dL (1.3-3.2); Glucose 123 mg/dl (74-100); HDL Cholesterol 39 mg/dl (40-60); Triglycerides 137 mg/dl (30-150); VLDL Cholesterol 27 mg/dL (0-40)
[2024-05-29 16:39] LABS: Direct LDL Cholesterol 61.21 mg/dL (100-129)
[2024-05-29 16:59] LABS: Thyroid Stimulating Hormone 2.15 uIU/mL (0.465-4.68)
[2024-05-29 18:07] LABS: Hemoglobin A1C 6.7 % (4.0-6.0)
== END 2024-05-29 23:59 | disposition home or self-care (01) ==
LOC: LAB.DROPOF 16:50
PROVIDERS: PCP Nurse Practitioner Family; Visit Provider Nurse Practitioner Family
DX: E11.9 Type 2 diabetes mellitus without complications (principal); E78.5 Hyperlipidemia, unspecified; I10 Essential (primary) hypertension; Z79.84 Long term (current) use of oral hypoglycemic drugs; Z87.891 Personal history of nicotine dependence
CPT/HCPCS: 80050; 80053; 80061; 80162; 83036; 84443; 85025

== ENCOUNTER 2024-10-15 08:30 | Outpatient (CLI) | payer MEDICARE, SELFPAY ==
[2024-10-15 16:36] LABS: Creatinine,Urine Random 53 mg/dL (Not Estab.)
[2024-10-15 23:30] LABS: Microalbumin/Creatinine Ratio 1332.6
== END 2024-10-15 23:59 | disposition home or self-care (01) ==
LOC: LAB.DROPOF 10-19 09:57
PROVIDERS: PCP Family Medicine; Visit Provider Family Medicine
DX: E11.69 Type 2 diabetes mellitus with other specified complication (principal)
CPT/HCPCS: 82043; 82570

== ENCOUNTER 2025-01-11 17:33 | Outpatient (CLI) | payer MEDICARE, SELFPAY ==
[2025-01-11 19:11] LABS: Basophils # 0.1 K/mm3 (0-0.2); Basophils % 0.6 % (0.1-2.0); Eosinophils # 0.1 K/mm3 (0.0-0.4); Eosinophils % 1.1 % (0.1-12.0); Hematocrit 50.1 % (42.0-52.0); Hemoglobin 16.2 g/dL (14.1-18.0); Lymphocytes # 0.8 K/mm3 (0.7-4.5); Lymphocytes % 6.6 % (10-50); Mean Corpuscular HGB Conc 32.3 g/dL (31.8-35.4); Mean Corpuscular Hemoglobin 28.8 pg (27.0-31.2); Mean Corpuscular Volume 89.1 fl (80-94); Mean Platelet Volume 11.2 fl (7.4-10.4); Monocytes # 0.8 K/mm3 (0.1-1.0); Monocytes % 7.3 % (1.7-9.3); Neutrophils # 9.7 K/mm3 (1.8-7.8); Neutrophils % 83.9 % (37.0-80.0); Platelet Count 187 K/mm3 (142-424); Red Blood Count 5.62 M/mm3 (4.60-6.20); Red Cell Distribution Width 14.5 % (11.5-17.5); White Blood Count 11.6 K/mm3 (4.8-10.8)
[2025-01-11 19:46] LABS: Hemoglobin A1C 6.8 % (4.0-6.0)
[2025-01-11 20:46] LABS: Alanine Aminotransferase 17 U/L (12-78); Albumin Level 4.6 g/dl (3.5-5.0); Alkaline Phosphatase 63 U/L (38-126); Anion Gap 12.2 mEq/L (5-15); Aspartate Amino Transferase 23 U/L (17-59); Bilirubin,Direct 0.7 mg/dl (0.0-0.4); Bilirubin,Indirect 1.2 mg/dL (0.0-0.9); Bilirubin,Total 1.9 mg/dl (0.2-1.3); Bilirubin,Unconjugated 1.3 mg/dL (0.0-1.1); Blood Urea Nitrogen 12 mg/dl (9-20); Calcium 9.4 mg/dl (8.4-10.2); Carbon Dioxide 33 mmol/L (22.0-30.0); Chloride 102 mmol/L (98-107); Chol/HDL Ratio 3.1 (1-3.5); Cholesterol 100 mg/dl (140-200); Estimated Glomerular Filt Rate 93 ml/min (>60); GFR (African American) 112 ML/MIN (>60); Glucose 135 mg/dl (74-100); HDL Cholesterol 32 mg/dl (40-60); Potassium 3.2 mmoL/L (3.5-5.1); Sodium 144 mmol/L (136-145); Total Protein,Serum 6.9 g/dl (6.3-8.2); Triglycerides 115 mg/dl (30-150); VLDL Cholesterol 23 mg/dL (0-40)
[2025-01-11 20:52] LABS: Digoxin < 0.40 ng/ml (0.2-2.00)
[2025-01-11 20:58] LABS: Direct LDL Cholesterol 40.16 mg/dL (100-129)
[2025-01-11 21:16] LABS: Thyroid Stimulating Hormone 1.41 uIU/mL (0.465-4.68)
[2025-01-11 21:21] LABS: Hepatitis C Ab Qual. W/ RFX NEGATIVE (Negative)
[2025-01-11 21:30] LABS: HIV Combo NEGATIVE (Negative)
[2025-01-11 23:10] LABS: Free T4 (Free Thyroxine) 1.57 ng/dl (0.78-2.19)
== END 2025-01-11 23:59 | disposition home or self-care (01) ==
LOC: LAB 17:34
PROVIDERS: Nurse Practitioner; Nurse Practitioner Family; PCP Family Medicine; Visit Provider Family Medicine
DX: E78.5 Hyperlipidemia, unspecified (principal); E03.9 Hypothyroidism, unspecified; I10 Essential (primary) hypertension; E11.69 Type 2 diabetes mellitus with other specified complication; R42 Dizziness and giddiness
CPT/HCPCS: 80048; 80061; 80076; 80162; 83036; 84439; 84443; 85025; 86803; 87389

== ENCOUNTER 2025-07-29 09:30 | Outpatient (CLI) | payer MEDICARE, SELFPAY ==
--- OUTSIDE RECORDS SUMMARY | 2025-07-30 02:18 | XMS_ITS | Referral Summary ---
Author Organization [facility] ([place], [place], [place], [place]) Address [address] [place] [address] Care Team Providers Care Card Hand Name Role Phone Julio C Varela MD Primary Care Provider [phone]- [phone] Allergies No known active allergies Medications atorvastatin (LIPITOR) 20 MG tablet Take 1 tablet (20 mg total) by mouth daily. 06/07/2023 Active clopidogreL (PLAVIX) 75 mg tablet Take 1 tablet (75 mg total) by mouth daily. 06/27/2023 Active dilTIAZem (CARDIZEM CD) 300 MG 24 hr capsule Take 1 capsule (300 mg total) by mouth every morning. 06/25/2023 Active Jardiance 25 mg tablet Take 1 tablet (25 mg total) by mouth daily. 07/02/2023 Active hydroCHLOROthia zide (HYDRODIURIL) 25 MG tablet Take 1 tablet (25 mg total) by mouth daily. 04/15/2023 Active levocetirizine (XYZAL) 5 MG tablet Take 1 tablet (5 mg total) by mouth daily. 07/08/2023 Active levothyroxine (SYNTHROID, LEVOTHROID) 25 MCG tablet Take 1 tablet (25 mcg total) by mouth every morning. 07/02/2023 Active metFORMIN (GLUCOPHAGE-XR) 500 MG 24 hr tablet Take 2 tablets (1,000 mg total) by mouth 2 (two) times daily. 06/03/2023 Active metoprolol succinate (TOPROL-XL) 100 MG 24 hr tablet Take 1 tablet (100 mg total) by mouth daily. 06/25/2023 Active omeprazole (PriLOSEC) 20 MG capsule Take 1 capsule (20 mg total) by mouth daily. Active Active Problems Problem Noted Date Diagnosed Date GIB (gastrointestinal bleeding) 07/17/2023 Acute blood loss anemia 07/17/2023 Social History Tobacco Use Types Packs/Day Years Used Date Smoking Tobacco: Never Smokeless Tobacco: Never Tobacco Cessation:Counseling Given: Not Answered Alcohol Use Standard Drinks/Week Comments Not Currently 0 (1 standard drink = 0.6 oz pur e alcohol) PRAPARE - Transportation Answer Date Re corded In the past 12 months, has l ack of transportation kept you from medical appointments or from getting medications? No 07/17/2023 Lack of Transportation (Non-Medical) Not on file 07/17/2023 Food Insecurity Answer Date Recorded Food run out past 12 months Not on file 10/21 Food did not last past 12 months Not on file 11/01/2023 Employment Answer Date Recorded Help finding and keeping a job Not on file 0 11/01/2023 Family and Community Support Answer Dago e Recorded Help with Day to Day Activities Not on file 11/01/2023 Feeling Lonely or Isolated Not on file 11/01 Educational Attainment Answer Date Kenneth rded Speak language other than Turkish at home Not on file 11/01/2023 Want help with school or training Not on file 11/01/2023 Substance Use Answer Date Recorded Used prescription meds for non-medical reasons N ot on file 11/01/2023 Used illegal drugs past 12 months Not on file 11/01/2023 Sex and Gender Information Value Date Recorded Sex Assigned at Not on file Legal Sex Male 12:07 PM CDT Gender Identity Not on file Sexual Orientation Not on file Last Filed Vital Signs Vital Sign Reading Time Taken Comments Blood Pressure 151/89 07/20/2023 9:54 AM EDT Pulse 93 07/20/2023 9:53 AM EDT Temperature 36.7 C (98.1 F) 07/20/2023 9:50 AM EDT Respiratory Rate 17 07/20/2023 9:50 AM EDT Oxygen Saturation 95% 07/20/2023 6:39 AM EDT Inhaled Oxygen Concentration - - Weight 99.3 kg (219 lb) 07/17/2023 7:00 PM EDT Height 185.4 cm (6' 1 ) 07/17/2023 7:00 PM EDT Body Mass Index 28.89 07/17/2023 7:00 PM EDT Plan of Treatment Not on file Insurance [facility] MEDICARE HMO Advance Directives For more information, please contact: [phone] * Full Code (Latest Code Status on File) Date Activated Date Inactivated Comments 07/17/2023 7:57 PM 07/20/2023 4:59 PM -Attempt Res uscitation if person has no pulse and is not breathing. -If no pulse or not breathing attempt CPR/CODE. -Call Rapid Response if patient is in distress. Care Teams Card Hand Relationship Specialty Start Date End Date Julio C Varela MD [address] [place] [address] [place] [id number] PCP - General Family Medicine 07/15/23
--- OUTSIDE RECORDS SUMMARY | 2025-07-30 02:18 | XMS_ITS | Clinical Summary ---
Author Organization [facility] Address [address] [place] [address] Care Team Providers Care Steel Turner Name Role Phone Julio C Varela MD Primary Care Provider Deepthi vailable Active Problems Problem Noted Date Diagnosed Date Anticoagulated 07/22/2023 A-fib 07/22/2023 Coronary artery disease 07/22/2023 Diabetes mellitus 07/22/2023 Hemoptysis 07/22/2023 Hyperlipemia 07/22/2023 Hypertension 07/22/2023 Former smoker 07/22/2023 Family History Medical History Relation Name Comments Stroke Father Diabetes Mother Relation Name Status Comments Father Mother Social History Tobacco Use Types Packs/Day Years Used Date Smoking Tobacco: Former Cigarettes Smokeless Tobacco: Never Alcohol Use Standard Drinks/Week Comments Never 0 (1 standard drink = 0.6 oz pur e alcohol) Sex and Gender Information Value Date Recorded Sex Assigned at Not on file Legal Sex Male 6:57 PM EDT Gender Identity Not on file Sexual Orientation Not on file Plan of Treatment Health Maintenance Due Date Last Done Comments [facility]-Depression Screening 1942 [facility]-Medicare Annual Wellness (AWV) 1942 [facility]-/Child/Adol SDOH Screenings 1942 [facility]- SDOH Screenings 1960 [facility]-Adult SDOH Screenings 1960 [facility]-DTaP,Tdap,and Td Vaccines (1 - Tdap) 1961 [facility]-Pneumococcal Vaccine: 50+ Years (1 of 2 - PCV) 1961 [facility]-Zoster Vaccines (1 of 2) 1992 [facility]-RSV Vaccine: 60+ Years or (1 - 1-dose 75+ series) 2017 [id number] Vaccine ( season) 2025 09/13/2021, 01/20/2021, 12/20/2020 [facility]-Influenza Vaccine (#1) 06/21/202508/25, 08/02/2020, 08/10/2019 HPV Vaccines Aged Out No longer eligi ble based on patient's age to complete this topic [facility]-HIB Vaccines Aged Out No longer e ligible based on patient's age to complete this topic [facility]-Hepatitis A Vaccines Aged Out No longer eligible based on patient's age to complete this topic [facility]-IPV Vaccines Aged Out No longer e ligible based on patient's age to complete this topic [facility]-Rotavirus Vaccines Aged Out No lo nger eligible based on patient's age to complete this topic Insurance MEDICARE Care Teams Steel Turner Relationship Specialty Start Date End Date Julio C Varela MD PCP - General Family Medicine 10/21/22
--- OUTSIDE RECORDS SUMMARY | 2025-07-30 02:18 | XMS_ITS | Clinical Summary ---
Author Organization [employer] [facility] ([place], [place], [place], [place]) Address [address] [place] [address] Care Team Providers Care Cotton Jammer Name Role Phone Julio C Varela MD Primary Care Provider [phone]- [phone] Allergies No known active allergies Medications atorvastatin [...] Date Kenneth rded Speak language other than Nigerian at home Not on file 11/01/2023 Want [...] 07/17/2023 7:00 PM EDT Plan of Treatment Health Maintenance Due Date Last Done Comments Depression Screening (12+) 1954 DTAP/TDAP/TD VACCINES (1 - Tdap) 1961 Pneumococcal 50+ years (1 of 1 - PCV) 1992 Shingles Vaccine (Zoster) (1 of 2) 1992 Medicare Initial AWV [id number] 06/22/2008 Respiratory Syncytial Virus (RSV) Adult or (1 - 1-dose 75+ series) 2017 Tobacco Cessation Counseling and Screening (12+) 07/17/2024 07/17/2023 Falls Risk Screening 10/21/2024 COVID-19 VACCINE (4 - 2024-2 6 season) 2025 09/13/2021, 01/20/2021, 12/20/2020 Influenza Vaccine (#1) 2025 , 07/21/2021, 08/02/2020, Additional history [place] [address] [employer] MEDICARE HMO Advance Directives For more information, please contact: [phone] * Full Code (Latest Code Status on File) Date Activated Date Inactivated Comments 07/17/2023 7:57 PM 07/20/2023 4:59 PM -Attempt Res uscitation if person has no pulse and is not breathing. -If no pulse or not breathing attempt CPR/CODE. -Call Rapid Response if patient is in distress. Care Teams Cotton Jammer Relationship Specialty Start Date End Date Julio C Varela MD [address] [place] [address] [place] [id number] PCP - General Family Medicine 07/15/23
--- OUTSIDE RECORDS SUMMARY | 2025-07-30 02:18 | XMS_ITS | Clinical Summary ---
Author Organization [facility] Address [address] [place] [address] Care Team Providers Care Named Account Executive Name Role Phone Francisco Silveira MD Primary Care Provider Social History Tobacco Use Types Packs/Day Years Used Date Smoking Tobacco: Never Assessed Abuse Screen Answer Date Recorded Unsafe at Home or Work/School Not on file Feels Threatened by Someone? Not on file 08/2023 Does Anyone Keep You from Co ntacting Others or Doint Things Outside the Home? Not on file 07/31/2023 Physical Sign of Abuse Present Not on file 1 Housing Stability Answer Date Recorded Current Living Arrangements Not on file 07/21 Potentially Unsafe Housing Conditions Not on meme e 07/31/2023 Family and Community Support Answer Dago e Recorded Help with Day-to-Day Activities Not on file 07/31/2023 Lonely or Isolated Not on file 07/31/2023 Employment Answer Date Recorded Do you want help finding or keeping work or a domonique b? Not on file 07/31/2023 Disabilities Answer Date Recorded Concentrating, Remembering, or Making Decisions Difficulty Not on file 07/31/2023 Doing Errands Independently Difficulty Not on fi le 07/31/2023 Education Answer Date Recorded Help with school or training? Not on file Preferred Language Not on file 07/31/2023 Sex and Gender Information Value Date Recorded Sex Assigned at Not on file Legal Sex Male 11:26 AM EDT Gender Identity Not on file Sexual Orientation Not on file Plan of Treatment Health Maintenance Due Date Last Done Comments ANNUAL PHYSICAL 1942 TDAP/TD VACCINES (1 - Tdap) 1961 Pneumococcal Vaccine 50+ (1 of 1 - PCV) 1992 ZOSTER VACCINE (1 of 2) 1992 RSV Vaccine - Adults (1 - 1-dose 75+ series) 7 INFLUENZA VACCINE 05/21/2025 COVID-19 Vaccine (2023- season) 2025 Care Teams Named Account Executive Relationship Specialty Start Date End Date Francisco Silveira MD [address] [place] [address] PCP - General 08/11/15
== END 2025-07-29 23:59 | disposition home or self-care (01) ==
LOC: LAB.DROPOF 07-30 02:16
PROVIDERS: PCP Family Medicine; Visit Provider Family Medicine
DX: E11.69 Type 2 diabetes mellitus with other specified complication (principal)
CPT/HCPCS: 82043; 82570